=== PATIENT | female | born 1970 | race Caucasian/White ===

== ENCOUNTER 2018-05-26 00:24 | Outpatient (CLI) | payer BC, SELFPAY ==
--- NOTE | 2018-05-26 14:59 | DI.MAMMO_ITS ---
SYMPTOMS/DIAGNOSIS: BREAST CANCER SCREENING, Z12.31 MAMMOGRAMS: Mammograms were interpreted according to the usual protocol including computer analysis with CAD system, tomosynthesis and C view imaging. Comparison is with the prior examinations. No masses or microcalcifications are seen. There is nothing to suggest malignancy. IMPRESSION: Negative mammogram. Routine screening is recommended. Category 1 , breast density C. MQSA ASSESSMENT OF FINDINGS: Negative. Category 1. Patient will receive a letter notifying them of these results. Bi-RADS category C. The breasts are heterogeneously dense, which may obscure small masses.
== END 2018-05-26 00:44 ==
DX: Z12.31 Encounter for screening mammogram for malignant neoplasm of breast (principal)
CPT/HCPCS: 77063; 77067

== ENCOUNTER 2018-05-30 07:06 | Outpatient (CLI) | payer BC, SELFPAY ==
[2018-05-30 08:33] LABS: ALT 26 U/L (12-78); AST 24 U/L (15-37); Alkaline Phosphatase 63 U/L (46-116); Anion Gap 11.1 mmol/L (3-11); BUN 10 mg/dL (7-18); Bilirubin, Total 0.5 mg/dL (0.2-1.0); CO2 26.9 mmol/L (21.0-32.0); CREATININE 0.76 mg/dL (0.55-1.02); Calcium 9.2 mg/dL (8.5-10.1); Chloride 99 mmol/L (98-107); Glucose 72 mg/dL (70-100); Potassium 4.1 mmol/L (3.5-5.1); Sodium 137 mmol/L (136-145); Total Protein 7.5 g/dL (6.4-8.2)
== END 2018-05-30 07:26 ==
DX: M19.90 Unspecified osteoarthritis, unspecified site (principal); F41.9 Anxiety disorder, unspecified; M25.561 Pain in right knee; M25.562 Pain in left knee
CPT/HCPCS: 36415; 80053

== ENCOUNTER 2019-05-29 01:33 | Outpatient (CLI) | payer BC, SELFPAY ==
[2019-05-29 08:54] LABS: Anion Gap 9.9 mmol/L (3-11); BUN 16 mg/dL (7-18); CO2 25.1 mmol/L (21.0-32.0); CREATININE 0.76 mg/dL (0.55-1.02); Calcium 8.7 mg/dL (8.5-10.1); Calculated LDL 143 mg/dL; Chloride 105 mmol/L (98-107); Cholesterol 218 mg/dL (50-200); Glucose 90 mg/dL (70-100); HDL Cholesterol 64 mg/dL (40-60); Potassium 4.2 mmol/L (3.5-5.1); Sodium 140 mmol/L (136-145); Triglyceride 55 mg/dL (30-150)
== END 2019-05-29 01:53 ==
DX: Z00.00 Encounter for general adult medical examination without abnormal findings (principal); I10 Essential (primary) hypertension; E78.5 Hyperlipidemia, unspecified; F41.9 Anxiety disorder, unspecified
CPT/HCPCS: 36415; 80048; 80061

== ENCOUNTER 2019-06-22 01:15 | Outpatient (CLI) | payer BC, SELFPAY ==
--- NOTE | 2019-06-22 15:26 | DI.MAMMO_ITS ---
EXAM: MG MAMMO SCREENING CLINICAL HISTORY: screening, Z12.39 TECHNIQUE: Mammograms were interpreted according to the usual protocol including computer analysis w [employer] CAD system, tomosynthesis and C-view imaging. COMPARISON: 2017 and 2018 FINDINGS: The breasts are composed of heterogeneously dense tissue, breast density category C. There are no oneal spicious masses or suspicious microcalcifications. There has been no significant change when compared with prior images. IMPRESSION: Category 1, negative mammogram. Yearly screening mammography is recommended. BI-RADS Cat 1 - Negative Breast Density - Category C - Heterogeneously dense
== END 2019-06-22 01:35 ==
DX: Z12.31 Encounter for screening mammogram for malignant neoplasm of breast (principal)
CPT/HCPCS: 77063; 77067

== ENCOUNTER 2019-11-15 10:15 | Outpatient (CLI) | payer BC, SELFPAY ==
[2019-11-16 18:52] LABS: COVID-19 RT-PCR UVMMC Result Negative (Negative)
== END 2019-11-15 10:35 ==
PROVIDERS: Visit Provider Family Medicine
DX: R50.9 Fever, unspecified (principal)
CPT/HCPCS: U0003

== ENCOUNTER 2020-06-11 10:17 | Outpatient (CLI) | payer BC, SELFPAY ==
[2020-06-13 11:12] LABS: SARS-CoV-2 RNA Not Detected (NotDetected); SARS-CoV-2 RNA Source Nasal/Nares
== END 2020-06-11 10:37 ==
DX: R50.9 Fever, unspecified (principal)
CPT/HCPCS: U0003

== ENCOUNTER 2020-06-20 03:29 | Outpatient (CLI) | payer BC, SELFPAY ==
[2020-06-20 08:54] LABS: ALT 30 U/L (14-59); AST 21 U/L (15-37); Albumin 3.6 g/dL (3.4-5.0); Alkaline Phosphatase 74 U/L (46-116); Anion Gap 6.7 mmol/L (3-11); BUN 11 mg/dL (7-18); Bilirubin, Total 0.3 mg/dL (0.2-1.0); CO2 28.3 mmol/L (21.0-32.0); CREATININE 0.87 mg/dL (0.55-1.02); Calcium 8.9 mg/dL (8.5-10.1); Chloride 104 mmol/L (98-107); Glucose 84 mg/dL (74-106); Potassium 4.5 mmol/L (3.5-5.1); Sodium 139 mmol/L (136-145); Total Protein 7.1 g/dL (6.4-8.2)
== END 2020-06-20 03:49 ==
DX: Z00.00 Encounter for general adult medical examination without abnormal findings (principal)
CPT/HCPCS: 36415; 80053

== ENCOUNTER 2020-07-17 01:35 | Outpatient (CLI) | payer BC, SELFPAY ==
--- NOTE | 2020-07-17 15:12 | DI.MAMMO_ITS ---
EXAM: MAMMO SCREENING CLINICAL HISTORY: screening,Z12.39 TECHNIQUE: Mammograms were interpreted according to the usual protocol including computer analysis w [employer] CAD system, tomosynthesis and C-view imaging. COMPARISON: FINDINGS: The breasts are heterogeneously dense. No dominant mass or clumped microcalcification is identified in either breast. The current examination is compared with previous examinations including June 2019 and there is question of increased prominence of an area of asymmetric density projected in the retroareolar portion of the right breast on MLO view only. Additional mammographic views of the righ t breast are requested to include MLO spot compression view of the breast. Breast ultrasound is mary jo mmended as well. No other significant change seen. IMPRESSION: Additional mammographic views of the right breast requested as described above along with right breas t ultrasound. BI-RADS Category 0 - Assessment Incomplete: Need additional imaging evaluation Breast Density - Category C - Heterogeneously dense
== END 2020-07-17 01:55 ==
DX: Z12.31 Encounter for screening mammogram for malignant neoplasm of breast (principal); R92.8 Other abnormal and inconclusive findings on diagnostic imaging of breast
CPT/HCPCS: 77063; 77067

== ENCOUNTER 2020-07-30 01:23 | Outpatient (CLI) | payer BC, SELFPAY ==
--- NOTE | 2020-07-30 | DI.MAMMO_ITS ---
EXAM: MG MAMMO SCREEN CALL BACK UNI CLINICAL HISTORY: F/U MAMMO, INCREASED ASYMMETRIC DENSITY TECHNIQUE: Spot compression views and tomographic imaging were performed. COMPARISON: 2016 through July 07. FINDINGS: An MLO spot compression view with tomography was performed of the subareolar region. No suspicious m asses or suspicious microcalcifications are seen. No persistent abnormality is seen on the additional views performed. The findings are consistent wit h overlying fibroglandular tissue. There has been no significant change from prior exams. IMPRESSION: BI-RADS Category 1, Negative Yearly screening mammography is recommended. Breast Density - Category C - Heterogeneously dense
== END 2020-07-30 01:43 ==
DX: N64.89 Other specified disorders of breast (principal); R92.8 Other abnormal and inconclusive findings on diagnostic imaging of breast
CPT/HCPCS: 77063; 77067

== ENCOUNTER 2021-07-21 11:27 | Outpatient (REF) | payer BC, SELFPAY ==
--- NOTE | 2021-07-21 12:15 | PAPFT_PTH ---
PATIENT: Tracy Gama LOC: [facility] U#:[id number] AGE/SX: 50/F ROOM: RE07/21/[address]: Nayely Verma APRN : 1970 BED: DIS: 07/21/2021 SPEC #: [id number] RECD: 07/22/21 12:57 STATUS: CHIQUITA LANTIGUA #: [id number] MARY: 07/21/21 12:[address]: Nayely Verma DEPT: [facility] Cytology RECD BY: Angeles Maloney Tissues: 1 - CX/ENDOCX FOR PAP SMEARS Procedures: PAP THIN PREP/UVM Screening HPV DNA PROBE Comments: [id number]
== END 2021-07-21 11:28 | disposition home or self-care (01) ==
LOC: LBN 11:27
DX: Z12.4 Encounter for screening for malignant neoplasm of cervix (principal); Z11.51 Encounter for screening for human papillomavirus (HPV)
CPT/HCPCS: 88142; 87624

== ENCOUNTER 2021-08-20 03:29 | Outpatient (CLI) | payer BC, SELFPAY ==
[2021-08-20 09:59] LABS: ALT 90 U/L (14-59); AST 68 U/L (15-37); Albumin 3.7 g/dL (3.4-5.0); Alkaline Phosphatase 126 U/L (46-116); BUN 12 mg/dL (7-18); Bilirubin, Total 0.3 mg/dL (0.2-1.0); CREATININE 0.8 mg/dL (0.55-1.02); Calculated LDL 214 mg/dL (<100); Chloride 104 mmol/L (98-107); Cholesterol 295 mg/dL (<200); Glucose 89 mg/dL (74-106); HDL Cholesterol 67 mg/dL (40-60); Potassium 4.7 mmol/L (3.5-5.1); Sodium 138 mmol/L (136-145); Total Protein 7.3 g/dL (6.4-8.2); Triglyceride 72 mg/dL (<150)
== END 2021-08-20 03:30 | disposition home or self-care (01) ==
LOC: LBO 03:29
DX: E78.5 Hyperlipidemia, unspecified (principal); Z00.00 Encounter for general adult medical examination without abnormal findings
CPT/HCPCS: 36415; 80053; 80061

== ENCOUNTER 2021-09-18 03:44 | Outpatient (CLI) | payer BC, SELFPAY ==
[2021-09-18] MEDS: Omnipaque 350 MG/ML 100 ML BTL IJ (14:59)
--- NOTE | 2021-09-18 15:10 | DI.CT_ITS ---
Exam(s) CT ABDOMEN WO/W EXAM: CT ABDOMEN WO/W CLINICAL HISTORY: F/U US,LESION OF LIVER,ELEVATED LFT'S,K76.9,K79.89 TECHNIQUE: Imaging Protocol: Axial computed tomography images with coronal and sagittal reformatted images were created and reviewed CONTRAST MATERIAL: Intravenous: Omnipaque 350 Contrast volume:structured data in ml Contrast route:I V - Oral: no COMPARISON: US US ABDOMEN from 09/05/2021 FINDINGS: ABDOMEN: Lung Bases: Normal where visualized. Liver: Normal size and density. No measurable mass. Gallbladder and biliary tract: No radiodense calculus or dilation. Pancreas: Normal density, no abnormal calcifications or inflammatory process. Spleen: Normal. Kidneys: Normal size, contour and axis. No radiodense stones or obstructive uropathy. No masses seen. Adrenal glands: No masses seen. Abdominal Aorta: Abdominal portion non-dilated. Lymph nodes: Within normal limits. Bowel: No wall thickening or evidence of obstruction. Stomach unremarkable as visualized. Bones: Unremarkable for age. IMPRESSION: Unremarkable CT scan of the abdomen. No liver lesion is identified. Findings on ultrasound may be artifactual. RADIATION DOSE DELIVERED: Total DLP Total DLP DATA REPOSITORY: All CT scans at this facility are submitted to the National Radiology Data Registry (NRDR) Dose Index Registry (DIR) with the [employer] (ACR). RADIATION OPTIMIZATION: All CT scans at this facility use at least one of these dose optimization te chniques: automated exposure control; mA and/or kV adjustment per patient size (includes targeted exa ms where dose is matched to clinical indication); or iterative reconstruction.
== END 2021-09-18 04:04 ==
PROVIDERS: Visit Provider Nurse Practitioner
DX: K76.9 Liver disease, unspecified (principal); R79.89 Other specified abnormal findings of blood chemistry
CPT/HCPCS: 74170; J3490

== ENCOUNTER 2021-10-08 01:06 | Outpatient (CLI) | payer BC, SELFPAY ==
--- NOTE | 2021-10-08 15:08 | DI.MAMMO_ITS ---
Exam(s) MAMMO SCREENING EXAM: MAMMO SCREENING CLINICAL HISTORY: screening,Z12.39. TECHNIQUE: Bilateral full field digital CC and MLO mammographic images were obtained with 3D tomosyn thesis and utilizing computer aided detection (CAD). COMPARISON: Prior mammograms were reviewed, the most recent being June 2020. FINDINGS: The fibroglandular tissue pattern is again noted be moderately dense, this somewhat decreasing the se nsitivity of the mammogram for finding in underlying lesions There are no CAD designations. There are no new spiculated masses nor malignant appearing microcalcification groups. Small benign-appearing nodules in the upper-outer quadrant of the right breast are unchanged from bernardo or studies and consistent with benign intramammary lymph nodes. There is no significant architectural distortion nor skin thickening-retraction. IMPRESSION: Dense bilateral fibroglandular tissue. No obvious radiographic evidence of malignancy and no signifi cant change compared to prior mammograms listed above. BI-RADS Category 2 - Benign Findings Breast Density - Category C - Heterogeneously dense Breast density Category C or D implies that the patient has dense breast tissue. Dense breast tissue can make it harder to find cancer on a mammogram. Dense breast tissue is also associated with an incr eased risk of breast cancer. This information about the result of the mammogram report was provided to the patient to raise their awareness. Use this report when you speak with the patient about their risks for breast cancer, which includes their family history. At that time, you may recommend additional screening tests (Ultrasoun d or MRI) as these tests may add significant information. A negative radiographic report should not delay biopsy if a dominant or clinically suspicious mass is present. Up to ten percent of cancers are not identified on mammography. A negative report may reinforce clinical impression. Adenosis and dense breasts may obscure an underlying neoplasm. False positive reports average 6 to 10%. Patient will receive a letter notifying them of these results.
== END 2021-10-08 01:26 ==
DX: Z12.31 Encounter for screening mammogram for malignant neoplasm of breast (principal); R92.8 Other abnormal and inconclusive findings on diagnostic imaging of breast
CPT/HCPCS: 77063; 77067

== ENCOUNTER 2022-01-02 01:44 | Outpatient (CLI) | payer BC, SELFPAY ==
[2022-01-02 11:01] LABS: ALT 32 U/L (14-59); AST 23 U/L (15-37); Albumin 3.8 g/dL (3.4-5.0); Alkaline Phosphatase 89 U/L (46-116); Bilirubin, Direct 0.1 mg/dL (0.0-0.2); Bilirubin, Total 0.3 mg/dL (0.2-1.0); Total Protein 7.9 g/dL (6.4-8.2)
== END 2022-01-02 01:45 | disposition home or self-care (01) ==
LOC: LBO 01:44
DX: R79.89 Other specified abnormal findings of blood chemistry (principal)
CPT/HCPCS: 36415; 80076

== ENCOUNTER 2022-02-06 11:26 | Outpatient (CLI) | payer OTHER, SELFPAY ==
--- NOTE | 2022-02-06 10:30 | DI.RAD_ITS ---
Exam(s) XR KNEE LT 2V AP,LAT EXAM: XR KNEE LT 2V AP,LAT CLINICAL HISTORY: BILAT KNE OA. TECHNIQUE: 2D digital imaging was performed. Two views. COMPARISON: CR XR KNEE RT 2V AP,LAT from 02/06/2022 FINDINGS: BONES: No acute fracture is present. No bony destructive lesion is seen. JOINTS: Severe degenerative changes medial femoral tibial joint causing varus angulation. Periartic ular spurring and sclerosis. No joint effusion is seen. SOFT TISSUE: Normal. IMPRESSION: Severe degenerative changes medial femoral tibial joint. DATA REPOSITORY: RADIATION DOSE DELIVERED:
--- NOTE | 2022-02-06 10:30 | DI.RAD_ITS ---
Exam(s) XR STANDING ALIGNMENT EXAM: XR STANDING ALIGNMENT CLINICAL HISTORY: PRE OP. TECHNIQUE: 2D digital imaging was performed. Standing AP views were performed from the pelvis throu gh the ankles. COMPARISON: No exams were available for comparison FINDINGS: BONES: No acute fracture is present. No bony destructive lesion is seen. The right femoral head proje cts slightly superior to the left, by a few millimeters. JOINTS: Knees: Severe narrowing both medial femoral tibial joints with varus angulation. The ankle and hip joints are unremarkable. SOFT TISSUE: Normal. IMPRESSION: Severe degenerative changes of the medial femoral tibial joints of both knees. No significant leg le ngth discrepancy. DATA REPOSITORY: RADIATION DOSE DELIVERED:
--- NOTE | 2022-02-06 10:30 | DI.RAD_ITS ---
Exam(s) XR KNEE RT 2V AP,LAT EXAM: XR KNEE RT 2V AP,LAT CLINICAL HISTORY: PRE OP. TECHNIQUE: 2D digital imaging was performed. Two views. COMPARISON: CR RIGHT KNEE COMPLETE from 12/23/2010 FINDINGS: BONES: No acute fracture is present. No bony destructive lesion is seen. JOINTS: Severe degenerative changes with a iyzn-[id number] appearance involving the medial femoral tibia l joint. Some flattening of the medial femoral condyle. Periarticular spurring. Varus angulation a t the knee. Spurring is also noted at the tibial spines and lateral femoral tibial joint. There is mild spurring at the articular aspect of the patella. No joint effusion is seen. SOFT TISSUE: Normal. IMPRESSION: Severe degenerative changes of the medial femoral tibial joint. DATA REPOSITORY: RADIATION DOSE DELIVERED:
== END 2022-02-06 11:27 | disposition home or self-care (01) ==
LOC: DIORS 11:27
PROVIDERS: Visit Provider Student in an Organized Health Care Education/Training Program
DX: M17.0 Bilateral primary osteoarthritis of knee (principal); Z01.818 Encounter for other preprocedural examination
CPT/HCPCS: 73560; 77073

== ENCOUNTER 2022-03-16 04:26 | Outpatient (CLI) | payer OTHER, SELFPAY ==
[2022-03-16 11:15] LABS: HGB 11.6 g/dL (11.2-15.7); MCH 27.7 pg (27.0-33.0); MCHC 32.2 % (32.0-36.0); MCV 86 fL (80-95); MPV 9.5 fL (8.0-11.0); Platelet Count 347 10^3/uL (130-400); RBC 4.19 10^6/uL (3.93-5.22); RDW 15.9 % (11.7-14.6); RDW-SD 49.9 fL; WBC 7.81 10^3/uL (4.4-10.8)
[2022-03-16 12:17] LABS: Anion Gap 7.3 mmol/L (3-11); BUN 14 mg/dL (7-18); CO2 26.7 mmol/L (21.0-32.0); CREATININE 0.7 mg/dL (0.55-1.02); Calcium 8.9 mg/dL (8.5-10.1); Chloride 104 mmol/L (98-107); Glucose 94 mg/dL (74-106); Potassium 4.2 mmol/L (3.5-5.1); Sodium 138 mmol/L (136-145)
[2022-03-16 12:19] LABS: Source Nasal/Nares
[2022-03-16 15:15] LABS: COVID-19 PCR Negative (Negative)
== END 2022-03-16 04:27 | disposition home or self-care (01) ==
LOC: LBO 04:26
PROVIDERS: Visit Provider Student in an Organized Health Care Education/Training Program
DX: M17.0 Bilateral primary osteoarthritis of knee (principal); Z01.818 Encounter for other preprocedural examination; Z20.822 Contact with and (suspected) exposure to COVID-19
CPT/HCPCS: 36415; 80048; 85027; 87635

== ENCOUNTER 2022-03-17 07:11 | Inpatient (IN) | payer OTHER, SELFPAY ==
[2022-03-17] VITALS (57 sets, daily range): BP systolic 89–135; BP diastolic 58–87; PULSE 84–120; RESP 11–23; TEMP 36–38; O2SAT 92–100; BMI 35.3
[2022-03-17] MEDS: Lactated Ringers 1,000 ML 80 ML IV ×2 (06:27→16:35)
[2022-03-17] MEDS: Acetaminophen 500 MG TAB 1000 MG PO ×3 (06:34→18:57)
[2022-03-17] MEDS: Celecoxib 200 MG CAP 400 MG PO (06:34)
[2022-03-17] MEDS: Gabapentin 300 MG CAP PO (06:34)
--- NOTE | 2022-03-17 06:50 | W.ANESPRE ---
General Info Date of Service Date Performed: 03/17/22 Height: 5 ft 4 in Weight: 93.44 kg Body Mass Index (BMI): 35.3 Surgical Procedure: Operation Date: 03/17/22 07:50 Proposed Procedure Side Surgeon p Knee Total Arthroplasty Bilateral Cementless CR Bilateral Teofilo Brower MD Meds Allergies and Home Medications Allergies Allergy/AdvReac Type Severity Reaction Status Date / Time No Known Allergies Allergy Verified 03/17/22 06:04 Home Medication Medication Instructions Recorded amitriptyline 25 mg tablet 25 mg PO QPM #90 tab-caps 07/21/21 citalopram 40 mg tablet 40 mg PO DAILY #90 tabs 07/21/21 loratadine 10 mg tablet 10 mg PO DAILY #30 tab-caps 07/21/21 triamcinolone acetonide 0.1 % 1 applic topical BID #30 grams 07/21/21 topical cream duloxetine 30 mg capsule,delayed 30 mg PO DAILY #90 caps 11/03/21 release Current Visit Medications: Current Medications Generic Name Dose Route Start Last Admin Trade Name Andrés PRN Reason Stop Dose Admin Acetaminophen 1,000 mg 03/17/22 06:00 Acetaminophen 500 Mg Tab PO 03/17/22 16:00 PREOP GERSON Celecoxib 400 mg 03/17/22 06:00 Celecoxib 200 Mg Cap PO 03/17/22 16:00 PREOP GERSON Gabapentin 300 mg 03/17/22 06:00 Gabapentin 300 Mg Cap PO 03/17/22 16:00 PREOP GERSON Tranexamic Acid 1,000 mg/ 60 mls @ 360 mls/hr 03/17/22 06:00 Sodium Chloride IVPB 03/17/22 16:00 PREOP GERSON Tranexamic Acid 1,000 mg/ 60 mls @ 360 mls/hr 03/17/22 06:00 Sodium Chloride IVPB 03/17/22 16:00 DIRECTED GERSON Ringer's Solution 1,000 mls @ 80 mls/hr 03/17/22 06:00 IV 04/15/22 23:59 INFUSION GERSON Cefazolin Sodium/Dextrose 2 gm in 50 mls @ 100 mls/hr 03/17/22 06:00 Ancef Duplex IVPB 03/17/22 16:00 PREOP GERSON IV Miscellaneous Supplies 1 each 03/17/22 06:00 Iv Access IV 09/28/22 23:59 DIRECTED GERSON Sodium Chloride 0 ml 03/17/22 06:00 Normal Saline Flush 10 Ml Syr IV 04/15/22 23:59 PRN PRN Sodium Chloride 0 ml 03/17/22 06:00 Normal Saline 10 Ml Vial IJ 04/15/22 23:59 DIRECTED PRN Sterile Water 0 ml 03/17/22 06:00 Water,Injection,Sterile 10 Ml Vial IJ 04/15/22 23:59 DIRECTED PRN PFSH Active Problems Active Problems: Problem Status Onset Code BMI 34.0-34.9,adult Z68.34 Lesion of liver K76.9 Elevated LFTs R79.89 Hyperlipidemia 09/22/12 E78.5 Dermatitis L30.9 Bilateral primary osteoarthritis of knee M17.0 Anxiety F41.9 Medical History Medical History Allergic rhinitis Encounter for annual physical exam Headache Left shoulder pain Osteoarthritis (07/03/13) knees bilat Tobacco Smoking/Tobacco Use Status: Never Passive smoking exposure: Yes Alcohol Alcohol Intake: current Alcohol intake frequency: holidays/special occasions only Alcohol type: beer Substance Use Substance use: Never Substance use type: does not use Vital Signs and Lab Results Vital Signs Most Recent Vital Signs in EMR: Temp Pulse Resp BP Pulse Ox 37.0 C 93 H 16 133/87 98 03/17/22 06:06 03/17/22 06:06 03/17/22 06:06 03/17/22 06:06 03/17/22 06:06 Lab Results Blood Type / Crossmatch: No Data to Display Complete Blood Count: White Blood Count 7.81 10^3/uL (4.4-10.8) 03/16/22 11:05 Red Blood Count 4.19 10^6/uL (3.93-5.22) 03/16/22 11:05 Hemoglobin 11.6 g/dL (11.2-15.7) 03/16/22 11:05 Hematocrit 36.0 % (36.0-46.0) 03/16/22 11:05 Platelet Count 347 10^3/uL (130-400) 03/16/22 11:05 Complete Metabolic Panel: Sodium Level 138 mmol/L (136-145) 03/16/22 11:05 Potassium Level 4.2 mmol/L (3.5-5.1) 03/16/22 11:05 Chloride Level 104 mmol/L (98-107) 03/16/22 11:05 Carbon Dioxide Level 26.7 mmol/L (21.0-32.0) 03/16/22 11:05 Blood Urea Nitrogen 14 mg/dL (7-18) 03/16/22 11:05 Creatinine 0.7 mg/dL (0.55-1.02) 03/16/22 11:05 Estimated GFR/1.73 m2 >= 60.00 (mL/min/1.73m2) 03/16/22 11:05 Calcium Level 8.9 mg/dL (8.5-10.1) 03/16/22 11:05 Glucose Level 94 mg/dL (74-106) 03/16/22 11:05 Liver Function Panel: No Data to Display Coagulation Panel: No Data to Display Cardiac Panel: No Data to Display Arterial Blood Gas: No Data to Display Venous Blood Gas: No Data to Display Pancreas Panel: No Data to Display Thyroid Panel: No Data to Display Infectious Disease: Coronavirus (COVID-19)(PCR) Negative (Negative) 03/16/22 11:16 Coronavirus 2019 Source Nasal/Nares 03/16/22 11:16 Blood Cultures: No Data to Display Toxicology Panel: No Data to Display Panel: No Data to Display Anesthesia Assessment and Plan Anesthesia History Personal History: No History of Anesthesia Complications Family History: No Family History of Anesthesia Complications Exercise Tolerance Exercise Tolerance: Metabolic Equivalents>4 Cardiac & Pulmonary Exam Cardiac Exam: Normal S1/S2 Heart Sounds Pulmonary Exam: Clear Bilateral Breath Sounds Implantable Cardiac Device Does patient have a Pacemaker or an ICD?: No Airway Exam Known Difficult Airway: No Mallampati Class: 2 Mouth Opening: Normal (> 3cm) Thyromental Distance: Greater than 3 cm Neck Range of Motion: Full ROM Neck Circumference: Normal Teeth Condition: Normal Dentition ASA Classification ASA Score: ASA 2 Emergency Case?: No NPO Status NPO Status: NPO Clears >2 hours, Solids >8 hours Status Status: Not Relevant due to Medical History Anesthesia Plan Resuscitation Status: Full Code Anesthesia Technique: Spinal Anesthesia Airway Planned: Natural Airway Pain Management: Surgeon and patient request nerve block Monitors Used: Standard Monitors Preoperative Comments:: 51 yo female for bilateral TKA. Sig PMHx: anxiety, never smoker, occ EtOH,
--- NOTE | 2022-03-17 07:14 | W.PM.DS.N ---
Discharge Plan Disposition Patient Disposition: HOME Condition: Good Discharge Details Reason For Visit: Bilateral knee DJD Attending Provider: Teofilo Brower Primary Care Provider: Nayely Vemra Home Meds and New Rx's Prescriptions: New celecoxib [Celebrex] 200 mg capsule 200 mg PO BID Qty: 30 0RF aspirin 81 mg tablet,delayed release (DR/EC) 81 mg PO BID 30 Days Qty: 60 0RF acetaminophen 500 mg tablet 1,000 mg PO Q8H PRN Qty: 90 0RF Rx Instructions: Take two tablets up to every 8 hours as needed for pain docusate sodium [Colace] 100 mg capsule 100 mg PO BID Qty: 30 0RF pantoprazole 40 mg tablet,delayed release (DR/EC) 40 mg PO DAILY 14 Days Qty: 14 0RF gabapentin 300 mg capsule 300 mg PO QHS Qty: 14 0RF Rx Instructions: Take one tablet at bedtime oxycodone 5 mg tablet 5 mg PO Q4H PRN (Reason: severe post-operative pain) Qty: 18 0RF Rx Instructions: Take one tablet up to every 4 hours as needed for severe pain Continued amitriptyline 25 mg tablet 25 mg PO QPM Qty: 90 3RF citalopram 40 mg tablet 40 mg PO DAILY Qty: 90 3RF loratadine 10 mg tablet 10 mg PO DAILY Qty: 30 3RF triamcinolone acetonide 0.1 % cream 1 applic topical BID Qty: 30 2RF duloxetine 30 mg capsule,delayed release(DR/EC) 30 mg PO DAILY Qty: 90 3RF Discontinued naproxen 500 mg tablet 500 mg PO BID PRN LARRY Qty: 180 2RF Discharge Instructions Additional Instructions: Total Knee Discharge Instructions Activity: The most important activity is to walk. You should try to take short walks a few times a day. It is important that when resting you work on keeping the knee straight. Avoid putting a pillow behind the knee as this will encourage flexion. Work on range of motion exercises as provided by Physical Therapy. - Start outpatient physical therapy within 2 weeks. - You should wear the GARY hose on both legs for 2 weeks. You may remove these at night. You may also use any compression sock in place of the GARY hose. - Utilize [employer] to review exercises, see videos on exercises and obtain basic information pertaining to your surgery and your recovery. Dressing: Remove the Bladimir wrap by 2 days after your surgery and put on the GARY stocking given to you from the hospital. Keep the surgical dressing (underneath the BLADIMIR wrap) in place for at least one week. After the first week it may be removed and replaced with light gauze and tape or nothing. The wound and dressing may get wet after 3 days but avoid soaking the dressing or otherwise it will need to be changed. Many people prefer covering the dressing with cling wrap (saran wrap) to minimize it from getting soaked. If it gets wet, just pat dry. If it starts to peel off then it will need to be changed. Medications: - You should take Tylenol and anti-inflammatory Celebrex as your primary pain control medications. If the Celebrex is too expensive or not covered, please call the office for another alternative (Advil/Ibuprofen or Naproxen/Aleve) - You have been prescribed a stronger pain medication Oxycodone for breakthrough pain, take as needed as prescribed. - You have also been prescribed a stomach acid reduction agent Pantoprozole to help reduce stomach acid and reflux. - You have been prescribed Gabapentin to take at night for restlessness and nerve pain. - You will be taking Aspirin 81mg twice a day for DVT prevention unless instructed otherwise. - If you have constipation you should take Colace (which has been prescribed) or Miralax (which is available [id number]). It takes most people 3-4 days to have a bowel movement. Follow-up: 2 weeks If you have any acute concerns or questions, please do not hesitate to contact the office at [phone]. You may contact Dr. Brower with any questions after hours through the hospital at [phone] or on his cell phone at [phone]. Referrals: Teofilo Brower MD [ [facility] STAFF PHYSICIAN] - Equipment/Supplies: Walker Activity:: Elevate Remove Dressings/Wound Care:: Do Not Remove Shower/Bathe:: Cover Diet:: As Tolerated DS: Data Vitals/I&O Vitals and I&O: Vital Signs Temperature 98.8 F 03/17/22 07:12 Temperature Source Temporal Artery Scan 03/17/22 07:12 Pulse 93 H 03/17/22 07:12 Pulse Rhythm Regular 03/17/22 06:06 Respiratory Rate 20 03/17/22 07:12 Respiratory Depth Normal 03/17/22 06:06 Blood Pressure 133/87 03/17/22 06:06 Pulse Oximetry 98 03/17/22 07:12 Oxygen Delivery Method Room Air 03/17/22 07:12 Oxygen Flow Rate 0 03/17/22 07:12 Pain Level 0 03/17/22 07:12 Intake & Output 03/16/22 03/16/22 03/17/22 11:59 23:59 11:59 Weight 205 lb 15.999 oz 205 lb 15.999 oz 205 lb 0.478 oz PFSH All Active Problems BMI 34.0-34.9,adult (Chronic) Elevated LFTs (Acute) 08/2021 - AST=68, ALT=90 (asymmptomatic) 12/2021 - AST 23, ALT 32 Hyperlipidemia (Chronic 09/22/12) ACC/AHA calc. risk = 1.8% despite elevations (Statin not indicated) Dermatitis (Chronic) hands Bilateral primary osteoarthritis of knee (Chronic) Most recent injection: 06/19/2019 bilaterally Anxiety (Chronic) depression Medical History Allergic rhinitis Encounter for annual physical exam Headache Left shoulder pain Osteoarthritis (07/03/13) knees bilat Family History Mother Hyperlipidemia Father , age 78 Essential hypertension Asthma Alcohol abuse Sister Hyperlipidemia Sister No problems noted. Sister No problems noted. Brother Hyperlipidemia Paternal Grandmother Pancreatic cancer Maternal Grandfather Heart disease Paternal Grandfather Heart disease Son No problems noted. Daughter No problems noted. Daughter No problems noted. Social History Smoking/Tobacco Use Status: Never Smoking risk assessment performed?: Yes Alcohol Intake: current Alcohol Intake frequency: holidays/special occasions only Alcohol type: beer Drug use: Never Substance use type: does not use Caregiver/Support person: No Household members: spouse Communication Needs: None current occupation: CAREGIVER Pets and animals: No Sexually active: Yes Do you think of yourself as: straight/heterosexual Current gender identity: female What is your relationship status?: How often do you talk on the phone with friends or family?: three or more times per week How often do you get together with friends or relatives?: once per week Do you belong to any clubs or organized social groups?: no Panel score (0-1 are the most socially isolated patients): 2 Beatriz/Samaritan: No preference Special beatriz needs: No Seatbelt use: always Drive intox or ride w/intox motor vehicle escort driver: No Do you feel safe at home: Yes Do you feel safe in your relationship?: Yes Victim of physical abuse: No Victim of emotional abuse: No Victim of sexual abuse: No Would you like helpful sources: No
[2022-03-17 08:49] LABS: BE (Venous) -7 mmol/L (-2-3); HCO3 (Venous) 20 mmol/L (23-28); O2 Sat (Venous) 97 %; TCO2 (Venous) 19 mmol/L (24-29); pCO2 (Venous) 47 mmHg (41-51); pH (Venous) 7.24 (7.31-7.41); pO2 (Venous) 143 mmHg
[2022-03-17 08:50] LABS: Abs Immature Grans 0.22 10^3/uL (0.0-0.06); Absolute Basophil Count 0.08 10^3/uL (0.0-0.2); Absolute Eosinophil Count 0.31 10^3/uL (0.0-0.7); Absolute Lymphocyte Count 4.68 10^3/uL (1.2-3.4); Absolute Monocyte Count 0.58 10^3/uL (0.1-0.8); Absolute Neutrophil Count 13.56 10^3/uL (1.2-6.7); Basophils % 0.4; Eosinophils % 1.6; HCT 39.1 % (36.0-46.0); HGB 12.4 g/dL (11.2-15.7); Immature Grans % 1.1; Lymphocytes % 24.1; MCH 27.4 pg (27.0-33.0); MCHC 31.7 % (32.0-36.0); MCV 86 fL (80-95); MPV 9.9 fL (8.0-11.0); Neutrophils % 69.8; Platelet Count 417 10^3/uL (130-400); RBC 4.53 10^6/uL (3.93-5.22); RDW 15.5 % (11.7-14.6); RDW-SD 49.4 fL; WBC 19.43 10^3/uL (4.4-10.8)
[2022-03-17 08:54] LABS: Lactate 2.5 mmol/L (0.6-1.4)
--- NOTE | 2022-03-17 08:59 | PUCC_ITS ---
General Date of Service Date of service: 03/17/22 Time of Service: 08:59 Reason for Admission to ICU: Distributive Shock Assessment and Plan Assessment and plan (1) Shock due to anesthesia: Status: Acute (2) Hypokalemia: Status: Acute (3) Respiratory failure with hypoxia: Status: Acute (4) Lactic acidosis: Status: Acute (5) Leukocytosis: Status: Acute Assessment and plan: This is an otherwise healthy 51 yo female who appears to have had a adverse reaction to anesthesia resulting in circulatory shock. She has central access a nd an arterial line. She recovered quickly with supportive care including intubation and pressor support. I do not beleive this is an anaphylactic reaction as she does not have any edema or rashes visible. Her rapid recovery and history of events suggests an acute drop in preload likely due to anesthetic medications results in massive hypoperfusion resulting in shock. This was promptly and effectively managed. Her labs do show hypokalemia as well. Recommendations Pulmonary: Acute respiratory failure with hypoxia - s/p intubation and extubated - supplemental O2 as needed for sats >90% - recommend IS Cardiac: Circulatory shock due to anesthesia - epinephrine has been weaned off - continue to wean off norepinephrine for MAP >65 - s/p 1200cc LR - no further IVF required - recommend EKG and formal echo Renal: Hypokalemia - replete to 4.0 Will monitor I/O's I&O: Intake & Output 03/14/22 03/15/22 03/16/22 03/17/22 23:59 23:59 23:59 23:59 Weight 93.44 kg 93 kg Daily Fluid Goal:: even to slightly positive GI Nutrition: OK for PO diet if passes bedside swallow test Date of Last Bowel Movement: 03/16/22 Infectious Disease: No acute concerns Hematologic: Leukocytosis - likely reactive Neurologic: No acute concerns - normal mental status upon extubation per anesthesia Endocrine: No acute concern Lines: Right IJ Left brachial arterial line Prophylaxis: recommend chemical DVT ppx No indication for GI ppx Code Status: Resuscitation Status Full Code Subjective Critical and life-threatening events over the past 24 hours: This is a 52 yo otherwise healthy female who presented to the OR for bilateral knee replacements for osteoarthritis. Her only home medications include depression meds, pain meds for her knee and a PPI in addition to a low dose aspirin. She received a spinal from anesthesia and once the meds began to take effect she began to develop dyspnea, bradycardia and hypotension prior to the initiation of the procedure. Anesthesia promptly intubated her and called me for assistance. On my arrival she was significant doses of epinephrine and norepinephrine and was intubated. Her vitals signs at this point her stable. A central line in the right IJ was placed by anesthesia. A left arterial line was attempted but difficult so I attempted a right femoral and a right axillary, both of which were cannulated but had difficulty threading so was aborted. Eventually anesthesia was able to place a left brachial art line. The epinephrine and norepinephrine were able to be titrated down rapidly during my time working on her in the OR. Labs drawn show some evidence of tissue hypoperfusion with a lactate of 2.5. She also does have hypokalemia identified in her labs. After follow up calling to the ICU I was informed that she was extubated without issue in the ICU. Exam Narrative Exam Narrative: Gen: Normal color, warm HENT: PERRL Chest: No respiratory distress, normal inspiratory effort, intubated Heart: regular rate and rhythym Abdomen: Non-distended, soft, non tender Extremities: No clubbing, edema, cyanosis, rashes Neuro: intubated and sedated Psych: intubated and sedated Most Recent VS/Results Last Vital Signs Temp 37.1 C 03/17/22 07:28 Pulse 89 03/17/22 07:28 Resp 21 03/17/22 07:28 BP 135/85 03/17/22 07:28 Pulse Ox 100 03/17/22 07:28 Laboratory Results - last 24 hr 03/17/22 03/17/22 03/17/22 08:30 08:30 08:30 WBC 19.43 H RBC 4.53 Hgb 12.4 Hct 39.1 MCV 86 MCH 27.4 MCHC 31.7 L RDW 15.5 H Plt Count 417 H MPV 9.9 Immature Gran % 1.1 Neutrophils % 69.8 Lymphocytes % 24.1 Monocytes % 3.0 Eosinophils % 1.6 Basophils % 0.4 Nucleated RBC % 0.0 Absolute Neutrophils 13.56 H Absolute Lymphocytes 4.68 H Absolute Monocytes 0.58 Absolute Eosinophils 0.31 Absolute Basophils 0.08 VBG pH 7.24 L VBG pCO2 47 VBG pO2 143 VBG HCO3 20 L VBG Total CO2 19 L VBG O2 Saturation 97 VBG Base Excess -7 L VBG Lactate 2.5 H* Review of Systems All systems reviewed & are unremarkable except as noted in HPI and below Time spent with patient Time spent in Critical Care: 60 Time spent in Critical care included: Chart review, Documenting critically ill care, Time at immediate bedside and Discussing critically ill care with other medical staff Multi-Disciplinary Checklist Lines/Tubes CENTRAL LINE: yes, Central Line Day#: 0 ARTERIAL LINE: yes, Arterial Line Day#: 0 DANG: no ENDOTRACHEAL TUBE: no ICU Maintenance GLUCOSE 140-180mg/dL: no, Reason/Intervention: elevated, will monitor NUTRITION AT GOAL: no, Reason/Intervention: just arrived to ICU - recommend PO diet PRESSURE ULCER: no RESTRAINTS: no ANTIBIOTICS(if yes, consider Stewardship): No Social Issues FAMILY UPDATED: no, Reason/Intervention: Patient able to do this independently PT/OT: no, Reason/Intervention: patient just arrived to ICU GOALS/DISPOSITION/LINUX PROGRAMMER: no, Reason/Intervention: patient just arrived to ICU CODE STATUS: Full Prophylaxis DVT PROPHYLAXIS: no Reason/Intervention: orders pending, but recommended GI PROPHYLAXIS: no
--- NOTE | 2022-03-17 09:02 | ROE_ITS ---
Date of service: 03/17/22 Time of Service: 08:30 Operative Note Operative Note DATE OF PROCEDURE: 03/17/22 PRE-OP DIAGNOSIS: Bilateral Knee Arthritis POST-OP DIAGNOSIS: same PROCEDURE: ABORTED SURGEON: Teofilo Brower WAREHOUSE FORKLIFT OPERATOR: Candelaria Mckay Refer to Anesthesia Record COMPLICATIONS: Other (Case aborted. Please see procedure description. ) Patient was transported to: ICU Patient's condition: critical Procedure Description: Tracy was greeted in the preoperative holding area. Her identity was confirmed and the consent was reviewed the patient and signed. Both knees were identified as the correct site for surgery. Bilateral abductor canal blocks were then administered anesthesia without issue and she was taken back to the operating room. A spinal anesthetic was administered. Both legs were prepped with ChloraPrep and draped in a standard fashion. Appropriate antibiotics were administered. Prior to proceeding any further with set up and surgery there was a fairly precipitous drop in blood pressure as well as oxygenation. Initial efforts to resuscitate were not adequately improving blood pressure nor oxygenation and therefore anesthesia proceeded with intubation and establishment of better access. Multiple providers were involved to establish central access as well as arterial access. Multiple vasopressors were utilized to help with blood pressure. After significant medical treatment the blood pressure improved and after intubation the oxygenation started to improve as well. At this point, it was deemed safest to abort the planned surgery and admit to the hospitalist service at the ICU for further evaluation and work-up. Bedside echo did not reveal any massive pulmonary embolus and did show adequate cardiac function and contraction. Prior to leaving the operating room the patient was intubated with central line access as well as multiple peripheral access and an arterial line. She was stable. A host of labs were ordered as well as a twelve-lead EKG, chest x-ray, and echocardiogram. Care will be transitioned to Dr. Gay of the hospital service with consultation from anesthesia and pulmonology.
[2022-03-17 09:12] LABS: ALT 51 U/L (14-59); AST 28 U/L (15-37); Albumin 2.9 g/dL (3.4-5.0); Alkaline Phosphatase 112 U/L (46-116); BUN 13 mg/dL (7-18); Bilirubin, Total 0.2 mg/dL (0.2-1.0); CO2 22.7 mmol/L (21.0-32.0); CREATININE 0.9 mg/dL (0.55-1.02); Chloride 105 mmol/L (98-107); Glucose 220 mg/dL (74-106); Total Protein 6.4 g/dL (6.4-8.2)
[2022-03-17 09:16] LABS: Troponin I < 50 ng/L (<or=60)
[2022-03-17 09:18] LABS: Anion Gap 11.3 mmol/L (3-11); Sodium 139 mmol/L (136-145)
[2022-03-17 09:24] LABS: Potassium 2.5 mmol/L (3.5-5.1)
--- NOTE | 2022-03-17 09:39 | DI.RAD_ITS ---
Exam(s) XR PORTABLE CHEST AP EXAM: XR PORTABLE CHEST AP CLINICAL HISTORY: s/p line placement with hypoxia TECHNIQUE: COMPARISON: No exams were available for comparison FINDINGS: Portable AP chest at 0935 hours. There is an apparent IJ catheter placed the tip of which overlies s uperior vena cava. Lungs appear grossly clear and well expanded. IMPRESSION: RADIATION DOSE DELIVERED: Total DLP
--- NOTE | 2022-03-17 09:48 | NT_ITS ---
Date of service: 03/17/22 Time of Service: 09:48 PT Notes Visit Reasons: Bilateral knee DJD Orthopedic referral cancelled by Dr. Brower as B TKA procedure was aborted due to hypotensive and respiratory emergency that occurred perioperatively. Thank you for the opportunity to participate in the care of this patient. Kamla Moses PT, DPT, CLT [facility] [place], [place]
--- NOTE | 2022-03-17 10:15 | RT.EKG_ITS ---
APPROVED REPORT Exam: Resting ECG Reason for Exam: hypotension Patient Location: I HR:87 bpm ECG Measurements Heart Rate 87 AXIS VT 151 P 43 QRSd 88 QRS 51 QT 370 T 57 QTc 445 Conclusion Sinus rhythm...normal P axis, V-rate 50- 99 Normal Electrocardiogram
--- NOTE | 2022-03-17 10:23 | W.ANESNERVE ---
Nerve Block Single Injection Procedure Date and Time Date Performed: 03/17/22 Procedure Start: 07:05 Location Where Procedure Performed Procedure Location: Day Surgery Unit Reason Performed: Postoperative Analgesia Requesting Provider: Teofilo Brower Timeout Performed Timeout Performed: Yes Monitoring Used ECG, Blood Pressure and SpO2 Sterility Sterility: Hand Hygiene, Surgical Cap, Surgical Mask, Sterile Gloves and Chlorhexidine Sedation Given During Procedure Sedation Given (Indicate Dose Given): Versed IV Dose:: 2 mg Patient Mental Status Patient Mental Status: Awake Nerve Block 1st Nerve Block: Laterality: Bilateral Block Type: Adductor Canal Needle / Catheter Used: 100mm SonoPlex II Local Anesthetic Bolus (Indicate Dose Given): Lidocaine used for local infiltration of skin, Injected in 3-5ml increments after negative blood aspiration, Half of Total block solution given into each side and Bupivacaine 0.375% Dose:: 20 mL Additives (Indicate Dose Given): None Ultrasound: Sterile probe cover and gel used Ultrasound Image Saved?: Yes Nerve Stimulator: Not Used Paresthesia: None Procedure Tolerated: No Complications Procedure Outcome: Successful Performed By: Jayy Mckenna
--- NOTE | 2022-03-17 10:31 | MCONE_ITS ---
Date of service: 03/17/22 Time of Service: 10:31 Assessment and Plan Assessment and plan (1) Respiratory failure with hypoxia: Status: Acute Assessment and plan: now extubated. monitor respiratory status; hold any feeding until later this afternoon when she is fully awake and we are ensured that she is handling secreations well (2) Shock due to anesthesia: Status: Acute Assessment and plan: now extubated and off epinephrine; on low dose Norepi. Will have nursing wean to map over 65 mm. Should be able to dc norepinephrine by this afternoon. (3) Hypokalemia: Status: Acute Assessment and plan: correct w/ IV potassium; check magnesium; one would have expected hyperkalemia given her metabolic acidosis. will give couple boluses 20 meq each over an hour each and repeat her electrolytes this afternoon (4) Lactic acidosis: Status: Acute Assessment and plan: secondary to vasoplegic shock; continue support of hemodynamics; correct hypokalemia, gently hydration; repeat lactic acid and electrolytes and serial troponin; check formal echocardiogram to evaluate RV and LV fxn (5) Leukocytosis: Status: Acute Assessment and plan: secondary to vasoplegic shock; however, nursing indicated that she was coughing a lot of thick yellow mucous at the time of extubation; CXR was clear; will give her IS and Acapella to encourage pulmonary clearance; monitor for any fevers; repeat her CBC later today along w/ her electrolytes (6) Bilateral primary osteoarthritis of knee: Status: Chronic History of Present Illness History of Present Illness Chief Complaint: hypotension Narrative: 51-year-old female with osteoarthritis but otherwise healthy with no known cardiac or pulmonary disease was brought to the OR today for an elective bilateral knee replacement. Patient was given spinal anesthetic and shortly thereafter developed refractory hypotension and hypoxemia and was emergently intubated and put on vasopressors including epinephrine and norepinephrine. Dr. Rosa, iuss analyst/CCM was emergently called to the OR and participated with resuscitation along with the anesthesia team and Dr. Brower. I was consulted after resuscitation had been successful. Patient had a right internal jugular vein central venous catheter placed as well as being emergently intubated and a left brachial arterial line was placed by anesthesia. Patient is now in the intensive care unit and has since been extubated placed on oxygen facemask. She is awake and conversant although she still feels cold and still requiring low- dose norepinephrine drip at 0.1 mcg/kg/min. Her map is above 65 mm. Epinep hrine was weaned off. ECG has been taken and shows no evidence of acute ischemic cardiac event. Initial labs showed a white count of 19,400 but no anemia. Hemoglobin 12.4 g. CHEM profile demonstrated hypokalemia two-point folic with anion gap 11.3 with normal transaminases normal troponin I less than 50 calcium was slightly low at 8.0 but corrects to normal with a low albumin of 2.9. Glucose elevated 220. Initial ABG demonstrated metabolic acidosis with pH 7.24 bicarbonate of 20 and a blood lactate of 2.5. Echocardiogram is pending at this time and EKG shows no ischemic changes. [id number] ultrasound of her heart was done in the OR and showed normal LV and RV function and normal size RV. Review of Systems Constitutional Constitutional: Reports fatigue and Reports malaise Cardiovascular Cardiovascular: Reports system reviewed and no additional complaints, except as documented Respiratory Respiratory: Reports system reviewed and no additional complaints, except as documented Gastrointestinal Gastrointestinal: Denies diarrhea, Reports nausea and Denies vomiting Genitourinary Genitourinary: Reports system reviewed and no additional complaints, except as documented Neurologic Neurologic: Reports system reviewed and no additional complaints, except as documented Endocrine Endocrine: Reports system reviewed and no additional complaints, except as documented and Reports fatigue Hematologic/Lymphatic Hematologic/Lymphatic: Reports system reviewed and no additional complaints, except as documented Allergic/Immunologic Allergic/Immunologic: Reports system reviewed and no additional complaints, except as documented PFSH All Active Problems (Updated 03/17/22 @ 09:38 by Amy Rosa MD) Respiratory failure with hypoxia (Acute) Leukocytosis (Acute) Lactic acidosis (Acute) Hypokalemia (Acute) Shock due to anesthesia (Acute) BMI 34.0-34.9,adult (Chronic) Elevated LFTs (Acute) 08/2021 - AST=68, ALT=90 (asymmptomatic) 12/2021 - AST 23, ALT 32 Hyperlipidemia (Chronic 09/22/12) ACC/AHA calc. risk = 1.8% despite elevations (Statin not indicated) Dermatitis (Chronic) hands Bilateral primary osteoarthritis of knee (Chronic) Most recent injection: 06/19/2019 bilaterally Anxiety (Chronic) depression Medical History Allergic rhinitis Encounter for annual physical exam Headache Left shoulder pain Osteoarthritis (07/03/13) knees bilat Family History Mother Hyperlipidemia Father , age 78 Essential hypertension Asthma Alcohol abuse Sister Hyperlipidemia Sister No problems noted. Sister No problems noted. Brother Hyperlipidemia Paternal Grandmother Pancreatic cancer Maternal Grandfather Heart disease Paternal Grandfather Heart disease Son No problems noted. Daughter No problems noted. Daughter No problems noted. Social History Smoking/Tobacco Use Status: Never Smoking risk assessment performed?: Yes Alcohol Intake: current Alcohol Intake frequency: holidays/special occasions only Alcohol type: beer Drug use: Never Substance use type: does not use Caregiver/Support person: No Household members: spouse Communication Needs: None current occupation: CAREGIVER Pets and animals: No Sexually active: Yes Do you think of yourself as: straight/heterosexual Current gender identity: female What is your relationship status?: How often do you talk on the phone with friends or family?: three or more times per week How often do you get together with friends or relatives?: once per week Do you belong to any clubs or organized social groups?: no Panel score (0-1 are the most socially isolated patients): 2 Beatriz/Adventist: No preference Special beatriz needs: No Seatbelt use: always Drive intox or ride w/intox pharmacy delivery driver: No Do you feel safe at home: Yes Do you feel safe in your relationship?: Yes Victim of physical abuse: No Victim of emotional abuse: No Victim of sexual abuse: No Would you like helpful sources: No Exam Narrative Exam Narrative: sleepy but oriented HEENT: Atraumatic normocephalic, pupils equally round reactive to light and accommodation, extraocular motion intact, TMs intact, nares moist and patent without exudate or bleeding, oropharynx noninjected without exudate, teeth in good repair Neck: Supple, nontender, without thyromegaly or lymphadenopathy or JVD. Normal carotid pulses Lungs: Clear to auscultation anteriorly but decreased breath sounds at the bases posteriorly Heart: Regular rate and rhythm without murmur rub or gallop. Normal apical impulse Abdomen: Nondistended, normal bowel sounds, nontender to palpation or percussion, no organomegaly, no bruits, no palpable masses Genitalia and rectal exam: Deferred Breasts: Deferred Extremities: no calf or thigh edema; feet are cool w/ palpable pedal pulses, no cyanosis Neurologic: grossly normal CN and no focal motor or sensory deficits. Results Last Vital Signs Temp 36.0 C L 03/17/22 09:10 Pulse 92 H 03/17/22 10:05 Resp 18 03/17/22 10:06 BP 107/72 03/17/22 10:05 Pulse Ox 97 03/17/22 10:06 Labs Result diagrams: 03/17/22 13:57 03/17/22 13:57 Labs: Laboratory Results - last 24 hr 03/17/22 03/17/22 03/17/22 08:30 08:30 08:30 WBC 19.43 H RBC 4.53 Hgb 12.4 Hct 39.1 MCV 86 MCH 27.4 MCHC 31.7 L RDW 15.5 H Plt Count 417 H MPV 9.9 Immature Gran % 1.1 Neutrophils % 69.8 Lymphocytes % 24.1 Monocytes % 3.0 Eosinophils % 1.6 Basophils % 0.4 Nucleated RBC % 0.0 Absolute Neutrophils 13.56 H Absolute Lymphocytes 4.68 H Absolute Monocytes 0.58 Absolute Eosinophils 0.31 Absolute Basophils 0.08 VBG pH VBG pCO2 VBG pO2 VBG HCO3 VBG Total CO2 VBG O2 Saturation VBG Base Excess VBG Lactate Sodium 139 Potassium 2.5 L* D Chloride 105 Carbon Dioxide 22.7 Anion Gap 11.3 H BUN 13 Creatinine 0.9 Est GFR (CKD-EPI 2020) 77.40 Glucose 220 H Calcium 8.0 L Total Bilirubin 0.2 AST 28 ALT 51 Alkaline Phosphatase 112 Troponin I < 50 Total Protein 6.4 Albumin 2.9 L 03/17/22 03/17/22 08:30 08:30 WBC RBC Hgb Hct MCV MCH MCHC RDW Plt Count MPV Immature Gran % Neutrophils % Lymphocytes % Monocytes % Eosinophils % Basophils % Nucleated RBC % Absolute Neutrophils Absolute Lymphocytes Absolute Monocytes Absolute Eosinophils Absolute Basophils VBG pH 7.24 L VBG pCO2 47 VBG pO2 143 VBG HCO3 20 L VBG Total CO2 19 L VBG O2 Saturation 97 VBG Base Excess -7 L VBG Lactate 2.5 H* Sodium Potassium Chloride Carbon Dioxide Anion Gap BUN Creatinine Est GFR (CKD-EPI 2020) Glucose Calcium Total Bilirubin AST ALT Alkaline Phosphatase Troponin I Total Protein Albumin
[2022-03-17 10:48] LABS: Magnesium 1.7 mg/dL (1.8-2.4)
[2022-03-17] MEDS: POTASSIUM CHLORIDE 20 MEQ/100 ML BAG 100 MEQ IVPB ×2 (10:50→12:42)
[2022-03-17] MEDS: Ondansetron 4 MG/2 ML VIAL IVP (10:50)
--- NOTE | 2022-03-17 11:17 | DI.US_ITS ---
APPROVED REPORT EXAM: Comprehensive 2D, Doppler, and color-flow Echocardiogram Patient Location: In-Patient Room/Bed: BAS068 Gyroscope Repairer: Hollie Oconnor RDCS (AE) Indications: Hypotension and Hypoxia anesthetic induced Other Information Study Quality: Fair. Technically limited study due to body habitus, inability to position patient, un cooperative patient. Conclusion Technically limited but adequate study Normal left ventricular wall thickness and chamber size. Estimated ejection fraction is 55 to 60%. No wall motion abnormalities were appreciated The right ventricle was not well visualized Both atria are normal in size There is no structural or hemodynamically significant valvular disease Wall motion Left Ventricle The left ventricle is normal size. There is normal left ventricular wall thickness. LVEF is 54%. Right Ventricle Right ventricle is not well visualized. Right ventricular systolic function could not be assessed. Atria The left atrium size is normal. The right atrium size is normal. The interatrial septum is intact wit h no evidence for an atrial septal defect. Aortic Valve The aortic valve is normal in structure. Aortic valve is trileaflet. There is no aortic valvular sten osis. No aortic regurgitation is present. Mitral Valve The mitral valve is normal in structure. No evidence of mitral valve stenosis. Trace mitral regurgita tion. Tricuspid Valve The tricuspid valve is normal in structure. There is no tricuspid valve stenosis. Trace tricuspid reg urgitation. Unable to assess PA pressure. Pulmonic Valve Pulmonic valve is not well visualized. There is no pulmonic valvular stenosis. There is no pulmonic v alvular regurgitation. Great Vessels The aortic root is normal in size. Ascending aorta is not well visualized. Aortic arch is not well vi sualized. The IVC was not visualized. Pericardium Technically limited subcostal imaging. 2D Dimensions IVSD d PLAX 0.84 cm F: 0.6-1.0 LVPW d PLAX 0.87 cm F: 0.6 - 1.0 LVID d PLAX 4.17 cm F: 3.8 - 5.2 LVDs 3.00 cm F: 2.2 - 3.5 Ao Root d 2.67 cm F: 2.7 - 3.3 LV EF Teichholz 54.3 % FS 27.75 % M-Mode TAPSE 1.59 cm (M/F) >1.7 LV Diastology MV E' lateral 0.122 (>0.1 m/s) E/A Ratio 1.0 LV E/e LAT 4.30 (<14) MV E Vmax 0.53 (0.4-1.3 m/s) MV E/E' lateral 4.32 MV A Vmax 0.55 (0.4-1.3 m/s) MV E/A Ratio 0.96 Aortic Valve LVOT Area 2.91 cm2 AoV Area Vmax 1.91 cm2 LVOT Vmax 0.74 m/s AoV Area/ BSA (Vmax) 0.98 cm2/m2 LVOT Mean Minh. 0.48 m/s GENEVIEVE Mean Minh. 1.65 cm2 LVOT Peak Grad 2.2 mmHg GENEVIEVE Mean Minh. Index 0.85 cm2/m2 LVOT Mean Grad 1.1 mmHg LVOT VTI 0.117 m LVOT Diam s 1.90 cm AoV Vmax 1.13 m/s Velocity Ratio 0.65 AoV Mean Minh. 0.85 m/s AoV Peak Grad 5.1 mmHg LVOT SV 34.02 mL AoV Mean Grad 3.1 mmHg AoV VTI 0.147 m AoV Area VTI 2.32 cm2 AoV Area/ BSA (VTI) 1.19 cm/m2 Mitral Valve MV DT 158 (160-240 msec) MV PHT 46 msec MV Area PHT 4.81 cm2 Pulmonary Valve PV Vmax 0.92 (0.5-1.5 m/s) RVOT Peak Gr. 2.32 mmHg PV Peak Grad 3.4 mmHg RVOT Mean Gr. 1.05 mmHg PV Mean Grad 2.0 mmHg RVOT VTI 0.128 m PV VTI 0.136 m RVOT Vmax 0.76 m/s
--- NOTE | 2022-03-17 12:31 | W.ANESPOSTOP ---
Postoperative Evaluation Date, Time and Location Date Performed: 03/17/22 Time Performed: 12:31 Patient Location: Intensive Care Unit Vital Signs Most Recent Imported Vital Signs: Most Recent Vital Signs Temp Pulse Resp BP Pulse Ox 36.0 C L 85 14 108/74 96 03/17/22 09:10 03/17/22 11:00 03/17/22 11:10 03/17/22 11:00 03/17/22 11:10 Pain Score Most Recent Pain Score: Most Recent Pain Score Pain Level 0 03/17/22 09:10 Assessment Mental Status: Awake (Alert & Oriented to Patient Baseline) Airway and Respiratory Function: Patent airway with normal (patient baseline) respiratory exam Cardiovascular Function: Hemodynamically Stable Hydration Status: Adequately Hydrated Nausea & Vomiting: Active Nausea or Vomiting Present Nausea and Vomiting Management: Nausea and vomiting active, being addressed with medication Pain: Pt. Denies Any Pain Peripheral Nerve Block: Regional nerve block not resolved at time of post operative discharge
[2022-03-17 12:41] LABS: Lactate 1.5 mmol/L (0.6-1.4)
[2022-03-17] MEDS: MAGNESIUM SULFATE 2 GM/50 ML BAG IVPB (12:42)
--- NOTE | 2022-03-17 13:09 | W.ANESPOSTOP ---
Postoperative Evaluation Date, Time and Location Date Performed: 03/17/22 Time Performed: 13:09 Patient Location: Day Surgery Unit Vital Signs Most Recent Imported Vital Signs: Most Recent Vital Signs Temp Pulse Resp BP Pulse Ox 36.0 C L 85 14 108/74 96 03/17/22 09:10 03/17/22 11:00 03/17/22 11:10 03/17/22 11:00 03/17/22 11:10 Most Recent Vital Signs Temp Pulse Resp BP Pulse Ox 36.0 C L 85 14 108/74 96 03/17/22 09:10 03/17/22 11:00 03/17/22 11:10 03/17/22 11:00 03/17/22 11:10 Pain Score Most Recent Pain Score: Most Recent Pain Score Pain Level 0 03/17/22 09:10 Assessment Mental Status: Awake (Alert & Oriented to Patient Baseline) Airway and Respiratory Function: Patent airway with normal (patient baseline) respiratory exam Cardiovascular Function: Hemodynamically Stable Hydration Status: Adequately Hydrated Nausea & Vomiting: No Nausea or Vomiting Pain: Pain is Moderate or Severe Postoperative Pain Management: Patient having pain, declines treatment, wishes to be discharged Peripheral Nerve Block: Patient did not receive a nerve block
[2022-03-17 14:03] LABS: Abs Immature Grans 0.18 10^3/uL (0.0-0.06); HCT 34.2 % (36.0-46.0); HGB 11.1 g/dL (11.2-15.7); MCH 27.8 pg (27.0-33.0); MCHC 32.5 % (32.0-36.0); MCV 86 fL (80-95); MPV 9.7 fL (8.0-11.0); Platelet Count 322 10^3/uL (130-400); RDW 15.4 % (11.7-14.6); RDW-SD 48.6 fL
[2022-03-17 14:05] LABS: WBC 25.38 10^3/uL (4.4-10.8)
[2022-03-17 14:12] LABS: Troponin I < 50 ng/L (<or=60)
[2022-03-17 14:14] LABS: Anion Gap 6.9 mmol/L (3-11); BUN 15 mg/dL (7-18); CO2 24.1 mmol/L (21.0-32.0); CREATININE 0.8 mg/dL (0.55-1.02); Calcium 8.1 mg/dL (8.5-10.1); Chloride 106 mmol/L (98-107); Estimated GFR 89.15 (mL/min/1.73m2); Glucose 103 mg/dL (74-106); Potassium 4.3 mmol/L (3.5-5.1); Sodium 137 mmol/L (136-145)
[2022-03-17 14:38] LABS: Absolute Lymphocyte Count 1.02 10^3/uL (1.2-3.4); Absolute Monocyte Count 2.03 10^3/uL (0.1-0.8); Absolute Neutrophil Count 22.33 10^3/uL (1.2-6.7); Bands % 12; Diff Comment Manual Differential; RBC Morphology Normal
--- NOTE | 2022-03-17 18:45 | DI.RAD_ITS ---
Exam(s) XR PORTABLE CHEST AP EXAM: XR PORTABLE CHEST AP CLINICAL HISTORY: fever, cough. TECHNIQUE: 2D digital imaging was performed. COMPARISON: CR XR PORTABLE CHEST AP from 03/17/2022 FINDINGS: Single AP portable view. Distal tip of the right jugular central line is in the upper right atrium, unchanged. Heart size is upper normal. The mediastinum is not widened. Lungs are clear. No infiltrates nor obvious pleural effusions. IMPRESSION: No acute pulmonary findings on this single AP portable view of the chest. Right central jugular line tip unchanged in position, as above. DATA REPOSITORY: RADIATION DOSE DELIVERED: All CT scans at this facility use at least one of these dose optimization techniques: automated exposure control; mA and/or kV adjustment per patient size (includes targeted e xams where dose is matched to clinical indication); or iterative reconstruction.
--- NOTE | 2022-03-17 19:39 | DI.VRAD_ITS ---
PROCEDURE INFORMATION: Exam: XR Chest Exam date and time: 03/17/2022 6:58 PM Age: 51 years old Clinical indication: Other: Fever, cough TECHNIQUE: Imaging protocol: Radiologic exam of the chest. Views: 1 view. COMPARISON: CR XR PORTABLE CHEST AP 03/17/2022 9:21 AM FINDINGS: Tubes, catheters and devices: Right neck central venous catheter in stable position with catheter tip within the superior cavoatrial junction. Lungs: Unremarkable. No consolidation. Pleural spaces: Unremarkable. No pleural effusion. No pneumothorax. Heart/Mediastinum: Unremarkable. No cardiomegaly. Bones/joints: Unremarkable. IMPRESSION: No evidence of acute cardiopulmonary process. Dictated and Authenticated by: Lucian Babcock MD. Ordering:.[facility] Lety Bowie MD
[2022-03-17] MEDS: Aspirin E.C. 81 MG TABEC PO (19:52)
[2022-03-17] MEDS: AMPICILLIN/SULBACTAM 3 GM in Normal Saline 100 ML IVPB (21:17)
[2022-03-17 22:03] LABS: Procalcitonin 8.1 ng/mL
[2022-03-17 22:35] LABS: Bilirubin Negative (Negative); Blood Large (Negative); Clarity Clear (Clear); Glucose Negative (Negative); Ketones Negative (Negative); Leukocyte Esterase Negative (Negative); Nitrite Negative (Negative); Urobilinogen 0.2 EU/dL (Up TO 0.2); pH 5.5 (5-8)
[2022-03-17 22:47] LABS: Bacteria Negative HPF (Negative); C & S Indicated? C&S Done As Ordered; Casts Negative LPF (Negative); Crystals Negative HPF (Negative); Epithelial Cells Negative HPF (Negative); Mucus Negative (Negative); Other Cells Negative (Negative); RBC 20-50 HPF (0-2)
[2022-03-18] MEDS: AMPICILLIN/SULBACTAM 3 GM in Normal Saline 100 ML IVPB ×2 (02:10→08:29)
[2022-03-18 03:10] VITALS: BP 111/73; PULSE 97; RESP 19; TEMP 37.1; O2SAT 100
[2022-03-18 07:16] LABS: Abs Immature Grans 0.04 10^3/uL (0.0-0.06); Absolute Lymphocyte Count 2.17 10^3/uL (1.2-3.4); Absolute Monocyte Count 0.41 10^3/uL (0.1-0.8); Absolute Neutrophil Count 9.79 10^3/uL (1.2-6.7); Basophils % 0.5; Eosinophils % 6.2; HCT 30.3 % (36.0-46.0); HGB 9.7 g/dL (11.2-15.7); Immature Grans % 0.3; Lymphocytes % 16.3; MCH 27.6 pg (27.0-33.0); MCV 86 fL (80-95); Monocytes % 3.1; Neutrophils % 73.6; Platelet Count 303 10^3/uL (130-400); RBC 3.52 10^6/uL (3.93-5.22); RDW 15.9 % (11.7-14.6); RDW-SD 49.7 fL
[2022-03-18 07:19] LABS: Absolute Basophil Count 0.07 10^3/uL (0.0-0.2); Absolute Eosinophil Count 0.82 10^3/uL (0.0-0.7)
[2022-03-18 07:24] VITALS: BP 112/69; PULSE 98; RESP 18; TEMP 37; O2SAT 100
[2022-03-18 07:32] LABS: ALT 43 U/L (14-59); AST 22 U/L (15-37); Alkaline Phosphatase 90 U/L (46-116); Anion Gap 1.1 mmol/L (3-11); BUN 8 mg/dL (7-18); Bilirubin, Total 0.3 mg/dL (0.2-1.0); CO2 26.9 mmol/L (21.0-32.0); CREATININE 0.8 mg/dL (0.55-1.02); Calcium 8.2 mg/dL (8.5-10.1); Chloride 105 mmol/L (98-107); Estimated GFR 89.15 (mL/min/1.73m2); Glucose 102 mg/dL (74-106); Magnesium 2.1 mg/dL (1.8-2.4); Potassium 3.8 mmol/L (3.5-5.1); Sodium 133 mmol/L (136-145); Total Protein 6.6 g/dL (6.4-8.2)
[2022-03-18] MEDS: Aspirin E.C. 81 MG TABEC PO (08:28)
[2022-03-18] MEDS: Pantoprazole 40 MG TABCR PO (08:28)
--- NOTE | 2022-03-18 09:20 | W.PM.PROGNOT ---
Date of Service Date of service: 03/18/22 Time of Service: 09:20 Assessment and Plan Assessment and plan (1) Shock due to anesthesia: Status: Resolved Assessment and plan: Likely secondary to high spinal injection of bupivacaine leading to respiratory and circulatory failure causing hypotension, bradycardia and respiratory depression. Successfully resuscitated w/ vasopressors and intubation w/ mechanical ventilation. Post extubation she had some coughing up purulent mucous according to ICU nursing staff. Thus repeat labs, blood cultures and CXR were obtained when she had a fever last night. She was empirically placed on Unasyn for possible aspiration event. she is doing well and I would dc her home today w/ 3 days of Augmentin. I would allow her a couple weeks to recuperate then she should be fine for general anesthetic to proceed w/ knee replacements (2) Hypokalemia: Status: Resolved Assessment and plan: resolved w/ oral and iv replacement yesterday (3) Lactic acidosis: Status: Resolved (4) Leukocytosis: Status: Resolved (5) Respiratory failure with hypoxia: Status: Resolved Subjective Subjective Interval history since last seen: patient is doing well this morning. afebrile (did have fever to 38 C last night). She denies any dyspnea, chest pain or cough. WBC is down today 13,000 from peak of 25,000. Blood cultures were taken and results are pending. Patient was put on Unasyn last night for potential aspiration event from yesterday. However, CXR last night did not show any pneumonic consolidation. she has been stable overnight and would like to return home today. I saw her w/ Dr. Brower and I feel that she is ready for discharge. Exam Narrative Exam Narrative: Tracy was seen in her room w/ her , Jamir present and Dr. Brower also was present Tracy has no dyspnea, she did have slight cough but is not producing any purulent mucous Lungs: clear to auscultation Heart: RRR, no murmur, rub or gallop Left brachial site looks clear, no hematoma or drainage Right groin: site of attempt at an arterial line yesterday also looks clean w/out hematoma or discharge Objective Last Vital Signs Temp 37.0 C 03/18/22 07:24 Pulse 98 H 03/18/22 07:24 Resp 18 03/18/22 07:24 BP 112/69 03/18/22 07:24 Pulse Ox 100 03/18/22 07:24 Laboratory Results - last 24 hr 03/17/22 03/17/22 03/17/22 08:25 08:30 12:35 WBC RBC Hgb Hct MCV MCH MCHC RDW Plt Count MPV Immature Gran % Neutrophils % Band Neutrophils % Lymphocytes % Monocytes % Eosinophils % Basophils % Nucleated RBC % Absolute Neutrophils Absolute Lymphocytes Absolute Monocytes Absolute Eosinophils Absolute Basophils RBC Morphology VBG Lactate Sodium 139 Potassium 2.5 L* D Chloride Carbon Dioxide Anion Gap 11.3 H BUN Creatinine Est GFR (CKD-EPI 2020) Glucose Calcium Magnesium 1.7 L Total Bilirubin AST ALT Alkaline Phosphatase Troponin I < 50 Total Protein Albumin Procalcitonin Urine Color Urine Clarity Urine pH Ur Specific [place] Urine Protein Urine Ketones Urine Blood Urine Nitrite Urine Bilirubin Urine Urobilinogen Ur Leukocyte Esterase Urine RBC Urine WBC Ur Epithelial Cells Urine Crystals Urine Bacteria Urine Casts Urine Mucus Urine Other Ur Culture Indicated? Urine Glucose 03/17/22 03/17/22 03/17/22 12:35 13:57 13:57 WBC 25.38 H* RBC 4.00 Hgb 11.1 L Hct 34.2 L MCV 86 MCH 27.8 MCHC 32.5 RDW 15.4 H Plt Count 322 MPV 9.7 Immature Gran % 0.0 Neutrophils % 76.0 Band Neutrophils % 12 Lymphocytes % 4.0 Monocytes % 8.0 Eosinophils % 0.0 Basophils % 0.0 Nucleated RBC % 0.0 Absolute Neutrophils 22.33 H Absolute Lymphocytes 1.02 L Absolute Monocytes 2.03 H Absolute Eosinophils 0.00 Absolute Basophils 0.00 RBC Morphology Normal VBG Lactate 1.5 H Sodium Potassium Cancelled Chloride Carbon Dioxide Anion Gap BUN Creatinine Est GFR (CKD-EPI 2020) Glucose Calcium Magnesium Total Bilirubin AST ALT Alkaline Phosphatase Troponin I Total Protein Albumin Procalcitonin Urine Color Urine Clarity Urine pH Ur Specific [place] Urine Protein Urine Ketones Urine Blood Urine Nitrite Urine Bilirubin Urine Urobilinogen Ur Leukocyte Esterase Urine RBC Urine WBC Ur Epithelial Cells Urine Crystals Urine Bacteria Urine Casts Urine Mucus Urine Other Ur Culture Indicated? Urine Glucose 03/17/22 03/17/22 03/17/22 13:57 21:05 22:00 WBC RBC Hgb Hct MCV MCH MCHC RDW Plt Count MPV Immature Gran % Neutrophils % Band Neutrophils % Lymphocytes % Monocytes % Eosinophils % Basophils % Nucleated RBC % Absolute Neutrophils Absolute Lymphocytes Absolute Monocytes Absolute Eosinophils Absolute Basophils RBC Morphology VBG Lactate Sodium 137 Potassium 4.3 D Chloride 106 Carbon Dioxide 24.1 Anion Gap 6.9 BUN 15 Creatinine 0.8 Est GFR (CKD-EPI 2020) 89.15 Glucose 103 Calcium 8.1 L Magnesium Total Bilirubin AST ALT Alkaline Phosphatase Troponin I Total Protein Albumin Procalcitonin 8.1 Urine Color Yellow Urine Clarity Clear Urine pH 5.5 Ur Specific [place] 1.010 Urine Protein Negative Urine Ketones Negative Urine Blood Large H Urine Nitrite Negative Urine Bilirubin Negative Urine Urobilinogen 0.2 Ur Leukocyte Esterase Negative Urine RBC 20-50 H Urine WBC 5-10 Ur Epithelial Cells Negative Urine Crystals Negative Urine Bacteria Negative Urine Casts Negative Urine Mucus Negative Urine Other Negative Ur Culture Indicated? C&S Done As Ordered Urine Glucose Negative 03/18/22 03/18/22 06:27 06:27 WBC 13.30 H RBC 3.52 L Hgb 9.7 L Hct 30.3 L MCV 86 MCH 27.6 MCHC 32.0 RDW 15.9 H Plt Count 303 MPV 10.0 Immature Gran % 0.3 Neutrophils % 73.6 Band Neutrophils % Lymphocytes % 16.3 Monocytes % 3.1 Eosinophils % 6.2 Basophils % 0.5 Nucleated RBC % 0.0 Absolute Neutrophils 9.79 H Absolute Lymphocytes 2.17 Absolute Monocytes 0.41 Absolute Eosinophils 0.82 H Absolute Basophils 0.07 RBC Morphology VBG Lactate Sodium 133 L Potassium 3.8 Chloride 105 Carbon Dioxide 26.9 Anion Gap 1.1 L BUN 8 Creatinine 0.8 Est GFR (CKD-EPI 2020) 89.15 Glucose 102 Calcium 8.2 L Magnesium 2.1 Total Bilirubin 0.3 AST 22 ALT 43 Alkaline Phosphatase 90 Troponin I Total Protein 6.6 Albumin 3.0 L Procalcitonin Urine Color Urine Clarity Urine pH Ur Specific [place] Urine Protein Urine Ketones Urine Blood Urine Nitrite Urine Bilirubin Urine Urobilinogen Ur Leukocyte Esterase Urine RBC Urine WBC Ur Epithelial Cells Urine Crystals Urine Bacteria Urine Casts Urine Mucus Urine Other Ur Culture Indicated? Urine Glucose
--- NOTE | 2022-03-18 09:37 | W.PM.DS.N ---
DS: Diagnosis Discharge Diagnosis (1) Respiratory failure with hypoxia: Status: Resolved (2) Shock due to anesthesia: Status: Resolved (3) Hypokalemia: Status: Resolved (4) Lactic acidosis: Status: Resolved (5) Leukocytosis: Status: Resolved (6) Bilateral primary osteoarthritis of knee: Status: Chronic Discharge Plan Disposition Patient Disposition: HOME Condition: Good Discharge Details Reason For Visit: Hypotension Admit Date/Time: 03/17/22 08:58 Admit Provider: Teofilo Brower Attending Provider: Jamir Davidson Primary Care Provider: Nayely Verma Hospital Course Hospital Course: Tracy was admitted to the ICU following attempted bilateral knee replacements. During the induction phase of the surgery, after the spinal anesthetic, there was significant hypotension as well as hypoxia which was not responding to typical treatments. Central access was obtained as well as arterial pressures and intubation to protect the airway. A host of lab work was performed in addition to CT scan for PE, chest x-ray, and echocardiogram. All these tests were normal. She was quickly weaned off of any blood pressure support and was extubated without difficulty. On hospital day #2 her labs had rebounded to a more normal level and she was without major complaint. She denied chest pain or shortness of breath. She had no cough. There was concern about potential aspiration with extubation and she did have a fever but this has resolved as well as her leukocytosis. The working diagnosis is either a high spinal or sensitivity to anesthetic induction. Home Meds and New Rx's Prescriptions: New amoxicillin-pot clavulanate [Augmentin] 500-125 mg tablet 1 tab PO BID Qty: 6 0RF Continued amitriptyline 25 mg tablet 25 mg PO QPM Qty: 90 3RF citalopram 40 mg tablet 40 mg PO DAILY Qty: 90 3RF loratadine 10 mg tablet 10 mg PO DAILY Qty: 30 3RF triamcinolone acetonide 0.1 % cream 1 applic topical BID Qty: 30 2RF duloxetine 30 mg capsule,delayed release(DR/EC) 30 mg PO DAILY Qty: 90 3RF Discontinued naproxen 500 mg tablet 500 mg PO BID PRN LARRY Qty: 180 2RF Discharge Instructions Additional Instructions: You may resume activities as tolerated. However, you should be patient with recovery. It is normal to be quite fatigued. Advance your activity slowly. You should complete the antibiotic and prophylaxis for potential aspiration pneumonia. I recommend a high-protein diet along with multivitamin. You may resume all other medications and treatments for your knee as we await rescheduling of your knee replacement surgery. Referrals: Teofilo Brower MD [ [facility] STAFF PHYSICIAN] - Activity:: Activity as Tolerated Equipment/Supplies:: No Equipment Needed Diet:: As Tolerated Discharge Orders Discharge Orders: Discharge Order (Routine); Ordered 03/18/22 Ordered By: Teofilo Brower DS: Summary Time Spent with Patient providing and/or coordinating discharge services: Less than 30 minutes Status at Discharge Functional status at discharge: independent ambulation Overall status at discharge: patient is progressing back to baseline Mental Status: mental status grossly normal Speech and Movement: speech and movement normal Mood: congruent mood Affect: normal affect Exam Narrative Exam Narrative: Sitting up in the hospital bed. No acute distress. Breathing comfortably without audible wheezing or distress. Central line within the right neck. No bleeding through the dressings about the arterial lines which have been removed. Psych Mental Status: mental status grossly normal Speech and Movement: speech and movement normal Mood: congruent mood Affect: normal affect DS: Data Vitals/I&O Vitals and I&O: Vital Signs Temperature 37.0 C 03/18/22 07:24 Temperature Source Tympanic 03/18/22 07:24 Pulse 98 H 03/18/22 07:24 Pulse Rhythm Regular 03/18/22 09:34 Pulse 106 H 03/17/22 16:31 Respiratory Rate 18 03/18/22 07:24 Respiratory Effort Non-Labored 03/18/22 09:34 Respiratory Depth Normal 03/18/22 09:34 Respiratory Pattern Normal 03/18/22 09:34 Blood Pressure 112/69 03/18/22 07:24 Blood Pressure Mean 73 03/17/22 16:31 Blood Pressure Position Sitting 03/17/22 07:28 Pulse Oximetry 100 03/18/22 07:24 Oxygen Delivery Method Room Air 03/18/22 07:24 Oxygen Flow Rate 0 03/18/22 07:24 Fraction of Inspired Oxygen (FIO2) 100 03/17/22 09:10 Pain Level 0 03/18/22 07:24 Comment 03/17/22 07:28 Arterial Systolic 109 03/17/22 13:08 Arterial Diastolic 57 03/17/22 13:08 Arterial Mean 87 03/17/22 13:16 Intake & Output 03/17/22 03/17/22 03/18/22 11:59 23:59 11:59 Intake Total 155.800 / 2256.467 2100.667 / 2256.467 200 / 200 Output Total 500 / 500 Balance 155.800 / 2517.037 9969.667 / 1756.467 200 / 200 Weight 93 kg 94.256 kg Intake: IV 155.800 / 2216.467 2060.667 / 2216.467 200 / 200 Oral 40 / 40 Output: Urine 500 / 500 Other: Urine Color Yellow Urine Appearance Cloudy Cloudy Urine Odor Normal Voiding Methods Toilet Toilet Data Completed and Pending Labs on day of discharge: Labs from last 24 hours 03/18/22 03/18/22 03/18/22 Unknown 06:27 06:27 WBC 13.30 H RBC 3.52 L Hgb 9.7 L Hct 30.3 L MCV 86 MCH 27.6 MCHC 32.0 RDW 15.9 H Plt Count 303 MPV 10.0 Immature Gran % 0.3 Neutrophils % 73.6 Band Neutrophils % Lymphocytes % 16.3 Monocytes % 3.1 Eosinophils % 6.2 Basophils % 0.5 Nucleated RBC % 0.0 Absolute Neutrophils 9.79 H Absolute Lymphocytes 2.17 Absolute Monocytes 0.41 Absolute Eosinophils 0.82 H Absolute Basophils 0.07 RBC Morphology VBG Lactate Sodium 133 L Potassium 3.8 Chloride 105 Carbon Dioxide 26.9 Anion Gap 1.1 L BUN 8 Creatinine 0.8 Est GFR (CKD-EPI 2020) 89.15 Glucose 102 Calcium 8.2 L Magnesium 2.1 Total Bilirubin 0.3 AST 22 ALT 43 Alkaline Phosphatase 90 Troponin I Total Protein 6.6 Albumin 3.0 L Tryptase Procalcitonin Urine Color Urine Clarity Urine pH Ur Specific [place] Urine Protein Urine Ketones Urine Blood Urine Nitrite Urine Bilirubin Urine Urobilinogen Ur Leukocyte Esterase Urine RBC Urine WBC Ur Epithelial Cells Urine Crystals Urine Bacteria Urine Casts Urine Mucus Urine Other Ur Culture Indicated? Urine Glucose Add-On Test Request Pending 03/17/22 03/17/22 03/17/22 22:00 21:05 13:57 WBC RBC Hgb Hct MCV MCH MCHC RDW Plt Count MPV Immature Gran % Neutrophils % Band Neutrophils % Lymphocytes % Monocytes % Eosinophils % Basophils % Nucleated RBC % Absolute Neutrophils Absolute Lymphocytes Absolute Monocytes Absolute Eosinophils Absolute Basophils RBC Morphology VBG Lactate Sodium 137 Potassium 4.3 D Chloride 106 Carbon Dioxide 24.1 Anion Gap 6.9 BUN 15 Creatinine 0.8 Est GFR (CKD-EPI 2020) 89.15 Glucose 103 Calcium 8.1 L Magnesium Total Bilirubin AST ALT Alkaline Phosphatase Troponin I Total Protein Albumin Tryptase Procalcitonin 8.1 Urine Color Yellow Urine Clarity Clear Urine pH 5.5 Ur Specific [place] 1.010 Urine Protein Negative Urine Ketones Negative Urine Blood Large H Urine Nitrite Negative Urine Bilirubin Negative Urine Urobilinogen 0.2 Ur Leukocyte Esterase Negative Urine RBC 20-50 H Urine WBC 5-10 Ur Epithelial Cells Negative Urine Crystals Negative Urine Bacteria Negative Urine Casts Negative Urine Mucus Negative Urine Other Negative Ur Culture Indicated? C&S Done As Ordered Urine Glucose Negative Add-On Test Request 03/17/22 03/17/22 03/17/22 13:57 13:57 12:35 WBC 25.38 H* RBC 4.00 Hgb 11.1 L Hct 34.2 L MCV 86 MCH 27.8 MCHC 32.5 RDW 15.4 H Plt Count 322 MPV 9.7 Immature Gran % 0.0 Neutrophils % 76.0 Band Neutrophils % 12 Lymphocytes % 4.0 Monocytes % 8.0 Eosinophils % 0.0 Basophils % 0.0 Nucleated RBC % 0.0 Absolute Neutrophils 22.33 H Absolute Lymphocytes 1.02 L Absolute Monocytes 2.03 H Absolute Eosinophils 0.00 Absolute Basophils 0.00 RBC Morphology Normal VBG Lactate 1.5 H Sodium Potassium Cancelled Chloride Carbon Dioxide Anion Gap BUN Creatinine Est GFR (CKD-EPI 2020) Glucose Calcium Magnesium Total Bilirubin AST ALT Alkaline Phosphatase Troponin I Total Protein Albumin Tryptase Procalcitonin Urine Color Urine Clarity Urine pH Ur Specific [place] Urine Protein Urine Ketones Urine Blood Urine Nitrite Urine Bilirubin Urine Urobilinogen Ur Leukocyte Esterase Urine RBC Urine WBC Ur Epithelial Cells Urine Crystals Urine Bacteria Urine Casts Urine Mucus Urine Other Ur Culture Indicated? Urine Glucose Add-On Test Request 03/17/22 03/17/22 03/17/22 12:35 08:30 08:25 WBC RBC Hgb Hct MCV MCH MCHC RDW Plt Count MPV Immature Gran % Neutrophils % Band Neutrophils % Lymphocytes % Monocytes % Eosinophils % Basophils % Nucleated RBC % Absolute Neutrophils Absolute Lymphocytes Absolute Monocytes Absolute Eosinophils Absolute Basophils RBC Morphology VBG Lactate Sodium Potassium Chloride Carbon Dioxide Anion Gap BUN Creatinine Est GFR (CKD-EPI 2020) Glucose Calcium Magnesium 1.7 L Total Bilirubin AST ALT Alkaline Phosphatase Troponin I < 50 Total Protein Albumin Tryptase Pending Procalcitonin Urine Color Urine Clarity Urine pH Ur Specific [place] Urine Protein Urine Ketones Urine Blood Urine Nitrite Urine Bilirubin Urine Urobilinogen Ur Leukocyte Esterase Urine RBC Urine WBC Ur Epithelial Cells Urine Crystals Urine Bacteria Urine Casts Urine Mucus Urine Other Ur Culture Indicated? Urine Glucose Add-On Test Request 03/17/22 22:00 Urine - Voided Urine Culture - Pending 03/17/22 21:14 Blood Blood Culture - Pending 03/17/22 21:05 Blood Blood Culture - Pending Preliminary micro results at discharge 03/17/22 22:00 Urine Culture - Pending Urine - Voided 03/17/22 21:14 Blood Culture - Pending Blood 03/17/22 21:05 Blood Culture - Pending Blood PFSH All Active Problems (Updated 03/18/22 @ 09:45 by Jamir Davidson MD) BMI 34.0-34.9,adult (Chronic) Elevated LFTs (Acute) 08/2021 - AST=68, ALT=90 (asymmptomatic) 12/2021 - AST 23, ALT 32 Hyperlipidemia (Chronic 09/22/12) ACC/AHA calc. risk = 1.8% despite elevations (Statin not indicated) Dermatitis (Chronic) hands Bilateral primary osteoarthritis of knee (Chronic) Most recent injection: 06/19/2019 bilaterally Anxiety (Chronic) depression Medical History Allergic rhinitis Encounter for annual physical exam Headache Left shoulder pain Osteoarthritis (07/03/13) knees bilat Family History Mother Hyperlipidemia Father , age 78 Essential hypertension Asthma Alcohol abuse Sister Hyperlipidemia Sister No problems noted. Sister No problems noted. Brother Hyperlipidemia Paternal Grandmother Pancreatic cancer Maternal Grandfather Heart disease Paternal Grandfather Heart disease Son No problems noted. Daughter No problems noted. Daughter No problems noted. Social History Smoking/Tobacco Use Status: Never Smoking risk assessment performed?: Yes Alcohol Intake: current Alcohol Intake frequency: holidays/special occasions only Alcohol type: beer Drug use: Never Substance use type: does not use Caregiver/Support person: No Household members: spouse Communication Needs: None current occupation: CAREGIVER Pets and animals: No Sexually active: Yes Do you think of yourself as: straight/heterosexual Current gender identity: female What is your relationship status?: How often do you talk on the phone with friends or family?: three or more times per week How often do you get together with friends or relatives?: once per week Do you belong to any clubs or organized social groups?: no Panel score (0-1 are the most socially isolated patients): 2 Beatriz/Oriental Orthodox: No preference Special beatriz needs: No Seatbelt use: always Drive intox or ride w/intox armor reconnaissance vehicle driver: No Do you feel safe at home: Yes Do you feel safe in your relationship?: Yes Victim of physical abuse: No Victim of emotional abuse: No Victim of sexual abuse: No Would you like helpful sources: No
[2022-03-18 11:37] LABS: Lab Add On Test DONE
[2022-03-18 11:45] LABS: Reticulocyte 1.1 % (0.5-2.4)
[2022-03-18 11:49] LABS: Total Iron Binding Capacity 343 ug/dL (250-450)
[2022-03-18 12:03] LABS: Ferritin 18 ng/mL (8-252)
== END 2022-03-18 11:14 | disposition home or self-care (01) | DRG 922 ==
LOC: SUR 07:14 → ICU 14:51 → MS 03-18 08:19
PROVIDERS: Nurse Anesthetist, Certified Registered; Admitting Provider Student in an Organized Health Care Education/Training Program; Visit Provider Internal Medicine
PROC: 0SRC0JZ Replacement of Right Knee Joint with Synthetic Substitute, Open Approach (ICD-10-PCS; CPT 27447; principal; 2022-03-17 07:30)
DX: T88.2XXA Shock due to anesthesia, initial encounter (principal); J96.01 Acute respiratory failure with hypoxia; E87.2 Acidosis; M17.0 Bilateral primary osteoarthritis of knee; Z53.09 Procedure and treatment not carried out because of other contraindication; E78.5 Hyperlipidemia, unspecified; F41.9 Anxiety disorder, unspecified; R74.01 Elevation of levels of liver transaminase levels; T41.3X5A Adverse effect of local anesthetics, initial encounter; Y92.234 Operating room of hospital as the place of occurrence of the external cause; E87.6 Hypokalemia; D72.829 Elevated white blood cell count, unspecified; R50.9 Fever, unspecified
CPT/HCPCS: 27447; 36415; 76942; 80048; 80053; 82805; 83520; 84145; 87040; 93306; 71045; 81003; 81015; 82728; 83550; 83605; 83735; 84132; 84484; 85025; 85045; 87086; 93005; 93010; 99223; 99231; J0171; J0295; J1100; J2250; J2370; J2405; J3480

== ENCOUNTER 2022-03-26 03:17 | Outpatient (CLI) | payer OTHER, SELFPAY | END 2022-03-26 03:18 | disposition home or self-care (01) | LOC: LBO 03:17 | PROVIDERS: Visit Provider Student in an Organized Health Care Education/Training Program | DX: R74.8 Abnormal levels of other serum enzymes (principal); T78.2XXA Anaphylactic shock, unspecified, initial encounter | CPT/HCPCS: 36415; 83520 ==

== ENCOUNTER 2022-05-12 18:11 | Outpatient (REF) | payer OTHER, SELFPAY ==
[2022-05-12 18:14] LABS: Abs Immature Grans 0.05 10^3/uL (0.0-0.06); Absolute Basophil Count 0.07 10^3/uL (0.0-0.2); Absolute Eosinophil Count 0.41 10^3/uL (0.0-0.7); Absolute Lymphocyte Count 2.51 10^3/uL (1.2-3.4); Absolute Monocyte Count 0.63 10^3/uL (0.1-0.8); Absolute Neutrophil Count 5.13 10^3/uL (1.2-6.7); Basophils % 0.8; Eosinophils % 4.7; HCT 33.9 % (36.0-46.0); HGB 10.4 g/dL (11.2-15.7); Immature Grans % 0.6; Lymphocytes % 28.5; MCH 26.5 pg (27.0-33.0); MCHC 30.7 % (32.0-36.0); MCV 86 fL (80-95); MPV 10.1 fL (8.0-11.0); Monocytes % 7.2; Neutrophils % 58.2; Platelet Count 441 10^3/uL (130-400); RBC 3.93 10^6/uL (3.93-5.22); RDW 14.3 % (11.7-14.6); RDW-SD 45.8 fL
== END 2022-05-12 18:12 | disposition home or self-care (01) ==
LOC: LBN 18:11
PROVIDERS: Visit Provider Student in an Organized Health Care Education/Training Program
DX: D72.10 Eosinophilia, unspecified (principal)
CPT/HCPCS: 85025

== ENCOUNTER 2022-05-15 02:20 | Outpatient (CLI) | payer OTHER, SELFPAY ==
[2022-05-15] MEDS: Albuterol HFA 18 GM 200 PUFF INH IH (16:01)
[2022-05-15] MEDS: Inhaler, Assist Device 1 EACH MC (16:01)
--- NOTE | 2022-05-15 16:55 | W.PFT ---
Date of service: 05/15/22 Time of Service: 15:00 Pulmonary Function Test Result Requesting Provider Shelley Indications: Anaphylaxis Interpretation Spirometry: There is no airflow limitation. There is no bronchodilator response. Lung Volumes: There is mild restrictive lung disease. Diffusion Capacity: The diffusion is slightly low. Airway Pressure: Normal airways resistance. Impression Mild restrictive lung disease with a decreased diffusion raises concern for a potential interstitial lung disease. Clinical Correlation therefore is recommended.
== END 2022-05-15 02:21 | disposition home or self-care (01) ==
LOC: RT 02:21
PROVIDERS: Visit Provider Student in an Organized Health Care Education/Training Program
DX: J98.4 Other disorders of lung (principal); J98.8 Other specified respiratory disorders; T41 Poisoning by, adverse effect of and underdosing of anesthetics and therapeutic gases
CPT/HCPCS: 94060; 94726; 94729

== ENCOUNTER 2022-09-01 02:13 | Outpatient (CLI) | payer OTHER, SELFPAY ==
[2022-09-01 15:44] LABS: HCT 33.7 % (36.0-46.0); HGB 10.3 g/dL (11.2-15.7); MCH 25.9 pg (27.0-33.0); MCHC 30.6 % (32.0-36.0); MCV 85 fL (80-95); MPV 9.4 fL (8.0-11.0); Platelet Count 385 10^3/uL (130-400); RBC 3.98 10^6/uL (3.93-5.22); RDW 17.2 % (11.7-14.6); RDW-SD 53.4 fL; WBC 8.35 10^3/uL (4.4-10.8)
[2022-09-01 16:21] LABS: ALT 33 U/L (14-59); AST 28 U/L (15-37); Albumin 3.9 g/dL (3.4-5.0); Alkaline Phosphatase 111 U/L (46-116); Anion Gap 9.6 mmol/L (3-11); BUN 9 mg/dL (7-18); Bilirubin, Total 0.3 mg/dL (0.2-1.0); CO2 26.4 mmol/L (21.0-32.0); CREATININE 0.8 mg/dL (0.55-1.02); Calcium 9.2 mg/dL (8.5-10.1); Calculated LDL 209 mg/dL (<100); Chloride 101 mmol/L (98-107); Cholesterol 283 mg/dL (<200); Estimated GFR 89.15 (mL/min/1.73m2); Glucose 91 mg/dL (74-106); HDL Cholesterol 58 mg/dL (40-60); Potassium 3.6 mmol/L (3.5-5.1); Sodium 137 mmol/L (136-145); TSH (W/Ref FT4) 1.44 uIU/mL (0.36-3.74); Total Protein 7.7 g/dL (6.4-8.2); Triglyceride 83 mg/dL (<150)
== END 2022-09-01 02:14 | disposition home or self-care (01) ==
LOC: LBO 02:13
PROVIDERS: PCP Nurse Practitioner Family; Visit Provider Nurse Practitioner Family
DX: Z00.00 Encounter for general adult medical examination without abnormal findings (principal); E78.5 Hyperlipidemia, unspecified; F41.8 Other specified anxiety disorders
CPT/HCPCS: 36415; 80053; 80061; 85027; 84443

== ENCOUNTER 2022-11-11 01:45 | Outpatient (CLI) | payer OTHER, SELFPAY ==
--- NOTE | 2022-11-11 09:00 | DI.MAMMO_ITS ---
Exam(s) MAMMO SCREENING EXAM: MAMMO SCREENING CLINICAL HISTORY: screening,z12.39 TECHNIQUE: Mammograms were interpreted according to the usual protocol including computer analysis w [employer] CAD system, tomosynthesis and C-view imaging. COMPARISON: 2016 through 2021 FINDINGS: The breasts are composed of heterogeneously dense fibroglandular densities, Breast Density category C . No suspicious masses or suspicious microcalcifications are seen. There is a smoothly marginated nodu le measuring 10 millimeters in diameter in the central breast tissue 5 cm from the nipple. Spot comp ression views and ultrasound are recommended. This likely represents a cyst. No skin thickening or abnormal axillary lymph nodes are seen. There has been no significant change in the right breast from prior exams. IMPRESSION: BI-RADS Category 0 - Assessment Incomplete: Need additional imaging evaluation with spot compression views and ultrasound. Breast Density Category C, heterogeneously Dense. The mammogram demonstrates the patient's breast tissue is dense. Dense breast tissue is very common a nd is not abnormal but dense breast tissue can make it harder to find cancer on a mammogram. Also, de nse breast tissue may increase breast cancer risk. This information about the result of the mammogram report was provided to the patient to raise their awareness. Use this report when you speak with the patient about their risks for breast cancer, which includes their family history. At that time, you may recommend additional screening tests (Ultrasound or MRI) as they might be useful based on their r isk. A negative radiographic report should not delay biopsy if a dominant or clinically suspicious mass is present. Up to ten percent of cancers are not identified on mammography. A negative report may reinforce clinical impression. Adenosis and dense breasts may obscure an underlying neoplasm. False positive reports average 6 to 10%.
== END 2022-11-11 02:05 ==
LOC: DI 01:45
PROVIDERS: PCP Nurse Practitioner Family; Visit Provider Nurse Practitioner Family
DX: Z12.31 Encounter for screening mammogram for malignant neoplasm of breast (principal); R92.2 Inconclusive mammogram
CPT/HCPCS: 77063; 77067

== ENCOUNTER 2022-11-11 02:52 | Outpatient (CLI) | payer OTHER, SELFPAY ==
[2022-11-11 14:50] LABS: HCT 35.9 % (36.0-46.0); HGB 11.3 g/dL (11.2-15.7); MCHC 31.5 % (32.0-36.0); MCV 86 fL (80-95); Platelet Count 332 10^3/uL (130-400); RBC 4.18 10^6/uL (3.93-5.22); RDW 16.1 % (11.7-14.6); WBC 9.47 10^3/uL (4.4-10.8)
[2022-11-11 15:44] LABS: Ferritin 129 ng/mL (8-252)
== END 2022-11-11 02:53 | disposition home or self-care (01) ==
LOC: LBO 02:53
PROVIDERS: PCP Nurse Practitioner Family; Visit Provider Nurse Practitioner Family
DX: D64.9 Anemia, unspecified (principal)
CPT/HCPCS: 36415; 85027; 82728

== ENCOUNTER 2022-11-23 01:37 | Outpatient (CLI) | payer OTHER, SELFPAY ==
--- NOTE | 2022-11-23 10:48 | DI.MAMMO_ITS ---
Exam(s) MG MAMMO SCREEN CALL BACK UNI US BREAST LT LIMITED EXAM: MG MAMMO SCREEN CALL BACK UNI CLINICAL HISTORY: SMOOTHLY MARGINATED 10 MM NODULE CENTRAL LT BREAST 5 CM FROM NIPPLE. TECHNIQUE: Craniocaudal and mediolateral oblique spot compression digital Mammography views of the l eft breast followed by Tomosynthesis and left breast ultrasound. COMPARISON: MG MG MAMMO SCREENING from 11/11/2022nd exams back to 2017 US US BREAST LT LIMITED from 11/23/2022 FINDINGS: Mammography/Tomosynthesis: Masses/Architectural Distortion: Persistent circumscribed nodule slightly medial to the nipple. Microcalcifictions: No suspicious pleomorphic-type are seen. Skin Thickening/Nipple Retraction: None. Left breast US: Echotexture: Normal appearance of the glandular tissue. Shadowing: No suspicious foci. Mass/cyst: Circumscribed ovoid homogeneous hypoechoic lesion without shadowing in the 10 o'clock posi tion 2 cm from the nipple which measures 8 x 4 by 10 mm. The either represents a proteinaceous cyst v ersus fibroadenoma. Ductal dilation: None. IMPRESSION: 1. No evidence of malignancy is noted. 2. 10 millimeter cyst versus fibroadenoma corresponding to the area of nodularity on mammogram. 3. The findings were discussed with the patient on the date of the examination. BI-RADS Category 3 - 6 month - Probably Benign Finding: Recommend follow-up mammography in 6 months Recommend follow-up mammography and ultrasound in 6 months Breast Density - Category C - Heterogeneously dense A mammogram that demonstrates density of C or D indicates the patient's breast tissue is dense. Dense breast tissue is very common and is not abnormal, but dense breast tissue can make it harder to find cancer on a mammogram. Also, dense breast tissue may increase their breast cancer risk. This informa tion about the result of the mammogram report was provided to the patient to raise their awareness. U se this report when you speak with the patient about their risks for breast cancer, which includes th eir family history. At that time, you may recommend for more screening tests (Ultrasound or MRI) as t hey might be useful based on their risk. A negative radiographic report should not delay biopsy if a dominant or clinically suspicious mass is present. Up to ten percent of cancers are not identified on mammography. A negative report may reinforce clinical impression. Adenosis and dense breasts may obscure an underlying neoplasm. False positive reports average 6 to 10%. Patient will receive a letter notifying them of these results.
== END 2022-11-23 01:57 ==
LOC: DI 01:37
PROVIDERS: PCP Nurse Practitioner Family; Visit Provider Nurse Practitioner Family
DX: R92.8 Other abnormal and inconclusive findings on diagnostic imaging of breast (principal)
CPT/HCPCS: 76642; 77063; 77067

== ENCOUNTER → 2023-06-02 01:41 | Outpatient (CLI) | payer OTHER, SELFPAY ==
--- NOTE | 2023-06-02 08:00 | DI.US_ITS ---
Exam(s) US BREAST LT COMPLETE MG MAMMO DIAGNOSTIC UNI EXAM: MG MAMMO DIAGNOSTIC UNI-LEFT COMPLETE LEFT BREAST ULTRASOUND CLINICAL HISTORY: 6 month follow up,r92.8,z09. TECHNIQUE: UNILATERAL LEFT BREAST CC AND MLO mammographic images PLUS ADDITIONAL SPOT COMPRESSION CC VIEWS were obtained with 3D tomosynthesis technique and utilizing computer aided detection (CAD). Also performed COMPLETE LEFT BREAST ULTRASOUND in all 4 quadrants and the retroareolar region, and th e left axilla. COMPARISON: Prior mammograms were reviewed, the most recent being November 2022. Prior ultrasound also r yamile.. FINDINGS: DIAGNOSTIC LEFT BREAST MAMMOGRAM: Fibroglandular tissue in left breast is again noted be moderately dense. The previously described no dule on the CC view was less visible on the conventional 3D cc view today. We then performed additio nal spot compression 3D view which was equivocal for the presence of a mammographically visible nodul e. There are no new spiculated masses nor malignant-appearing microcalcification groups in the left [address]. There is no new architectural distortion or skin thickening-traction. We then proceeded with ultrasound.. COMPLETE LEFT BREAST ULTRASOUND: There are microcysts noted at 1 o'clock position (7 mm) and 4 o'clock position (6 mm) as well as to alex montanez 3 mm microcysts at the 7 o'clock position. At the 10 o'clock position the previously described finding is again noted. On today's study it appe ars similar in size, measuring 10 x 5 mm and has appearance of a benign cyst, well-defined and with i ncreased through transmission. No internal echoes. IMPRESSION: Benign left breast findings as described above. Appropriate follow-up is to keep this patient on her yearly mammogram schedule, implying the next ramon ateral mammogram would be in November 2023. Given the density of her fibroglandular tissue plus the fact that ultrasound shows findings hidden subjacent to her dense tissue on mammography I would recommend at that time that she also undergo complete bilateral breast ultrasound The patient was informed of the findings and follow-up recommendations by myself prior to leaving the department today. BI-RADS Category 2 - Benign Findings Breast Density - Category C - Heterogeneously dense Breast density Category C or D implies that the patient has dense breast tissue. Dense breast tissue can make it harder to find cancer on a mammogram. Dense breast tissue is also associated with an incr eased risk of breast cancer. This information about the result of the mammogram report was provided to the patient to raise their awareness. Use this report when you speak with the patient about their risks for breast cancer, which includes their family history. At that time, you may recommend additional screening tests (Ultrasoun d or MRI) as these tests may add significant information. A negative radiographic report should not delay biopsy if a dominant or clinically suspicious mass is present. Up to ten percent of cancers are not identified on mammography. A negative report may reinforce clinical impression. Adenosis and dense breasts may obscure an underlying neoplasm. False positive reports average 6 to 10%. Patient will receive a letter notifying them of these results.
== END ==
PROVIDERS: PCP Nurse Practitioner Family; Visit Provider Nurse Practitioner Family
DX: R92.8 Other abnormal and inconclusive findings on diagnostic imaging of breast (principal); Z09 Encounter for follow-up examination after completed treatment for conditions other than malignant neoplasm
CPT/HCPCS: 76642; 77061; 77065; G0279

== ENCOUNTER 2023-09-01 04:06 | Outpatient (CLI) | payer OTHER, SELFPAY ==
[2023-09-01 09:57] LABS: HCT 39.2 % (36.0-46.0); HGB 12.6 g/dL (11.2-15.7); MCH 28.3 pg (27.0-33.0); MCHC 32.1 % (32.0-36.0); MCV 88 fL (80-95); MPV 8.8 fL (8.0-11.0); Platelet Count 378 10^3/uL (130-400); RBC 4.46 10^6/uL (3.93-5.22); RDW 13.9 % (11.7-14.6); RDW-SD 45.5 fL; WBC 7.17 10^3/uL (4.4-10.8)
[2023-09-01 10:25] LABS: Hemoglobin A1C 5.7 % (<5.7)
[2023-09-01 10:56] LABS: ALT 42 U/L (14-59); AST 28 U/L (15-37); Albumin 3.5 g/dL (3.4-5.0); Alkaline Phosphatase 126 U/L (46-116); Anion Gap 9.5 mmol/L (3-11); BUN 10 mg/dL (7-18); Bilirubin, Total 0.4 mg/dL (0.2-1.0); CO2 28.5 mmol/L (21.0-32.0); CREATININE 0.8 mg/dL (0.55-1.02); Calcium 9.5 mg/dL (8.5-10.1); Calculated LDL 195 mg/dL (<100); Chloride 104 mmol/L (98-107); Cholesterol 273 mg/dL (<200); Ferritin 51 ng/mL (8-252); Glucose 94 mg/dL (74-106); HDL Cholesterol 52 mg/dL (40-60); Potassium 4.2 mmol/L (3.5-5.1); Sodium 142 mmol/L (136-145); Total Protein 7.9 g/dL (6.4-8.2); Triglyceride 132 mg/dL (<150)
[2023-09-01 11:18] LABS: Iron 52 ug/dL (50-170); Total Iron Binding Capacity 322 ug/dL (250-450); Transferrin Sat 16 % (15-50)
== END 2023-09-01 04:07 | disposition home or self-care (01) ==
LOC: LBO 04:07
PROVIDERS: PCP Nurse Practitioner Family; Visit Provider Nurse Practitioner Family
DX: Z00.00 Encounter for general adult medical examination without abnormal findings (principal); F41.8 Other specified anxiety disorders; D50.9 Iron deficiency anemia, unspecified; R53.83 Other fatigue; R79.89 Other specified abnormal findings of blood chemistry
CPT/HCPCS: 36415; 80053; 80061; 85027; 82728; 83036; 83540; 83550

== ENCOUNTER → 2023-11-15 04:25 | Outpatient (CLI) | payer OTHER, SELFPAY ==
--- NOTE | 2023-11-15 08:00 | DI.MAMMO_ITS ---
Exam(s) MAMMO SCREENING EXAM: MAMMO SCREENING CLINICAL HISTORY: screening,Z12.39. TECHNIQUE: Bilateral full field digital CC and MLO mammographic images were obtained with 3D tomosyn thesis and utilizing computer aided detection (CAD). COMPARISON: Prior mammograms were reviewed. Prior ultrasound examinations were also reviewed FINDINGS: The fibroglandular tissue pattern is again noted be moderately dense, this somewhat decreasing the se nsitivity of the mammogram for finding hidden underlying lesions. No obvious new left breast findings. On the right CC view there is an asymmetric density-possible nodule measuring 6 x 5 mm located 3 cm i n from the nipple, slightly lateral of center. Spot compression view and ultrasound recommended. There are no malignant-appearing microcalcification groups in this region or elsewhere in either [address] There is no significant architectural distortion nor skin thickening-retraction. IMPRESSION: Moderately dense fibroglandular tissue. Suggestion of 6 x 5 mm right breast nodule. Spot compressio n CC view and ultrasound recommended. I recommend patient undergo bilateral breast ultrasound given this finding plus other findings in the opposite-left breast which have been shown to be hidden subja cent to her dense fibroglandular tissue on 3D mammography. In the left breast we would be most inter ested in reviewing the appearance of the finding previously described at the 10 o'clock position. Therefore, recommend diagnostic right breast mammogram and bilateral complete breast ultrasound BI-RADS Category 0 - Assessment Incomplete: Need additional imaging evaluation Breast Density - Category C - Heterogeneously dense Breast density Category C or D implies that the patient has dense breast tissue. Dense breast tissue can make it harder to find cancer on a mammogram. Dense breast tissue is also associated with an incr eased risk of breast cancer. This information about the result of the mammogram report was provided to the patient to raise their awareness. Use this report when you speak with the patient about their risks for breast cancer, which includes their family history. At that time, you may recommend additional screening tests (Ultrasoun d or MRI) as these tests may add significant information. A negative radiographic report should not delay biopsy if a dominant or clinically suspicious mass is present. Up to ten percent of cancers are not identified on mammography. A negative report may reinforce clinical impression. Adenosis and dense breasts may obscure an underlying neoplasm. False positive reports average 6 to 10%. Patient will receive a letter notifying them of these results.
== END ==
PROVIDERS: PCP Nurse Practitioner Family; Visit Provider Nurse Practitioner Family
DX: Z12.31 Encounter for screening mammogram for malignant neoplasm of breast (principal); R92.8 Other abnormal and inconclusive findings on diagnostic imaging of breast
CPT/HCPCS: 77063; 77067

== ENCOUNTER → 2023-11-17 04:10 | Outpatient (CLI) | payer OTHER, SELFPAY ==
--- NOTE | 2023-11-17 | DI.MAMMO_ITS ---
Exam(s) MG MAMMO SCREEN CALL BACK UNI US BREAST RT COMPLETE EXAM: MG MAMMO SCREEN CALL BACK UNI-RIGHT AND COMPLETE RIGHT BREAST ULTRASOUND CLINICAL HISTORY: F/U MAMMO, R92.8,RT ASYMMETRIC DENSITY,? NODULE. TECHNIQUE: Unilateral spot mammographic images obtained with 3D tomosynthesisand utilizing computer aided detection (CAD). . Complete RIGHT breast Ultrasound was also performed, including all 4 quadrants, the retroareolar román on, and the ipsilateral axilla. COMPARISON: Prior mammograms were reviewed. This additional imaging was performed due to findings described on the recent screening mammogram of 11/15/2023. FINDINGS: DIAGNOSTIC MAMMOGRAM: Additional mammographic views performed todayequivocal for the presence of a nodule. We proceeded with ultrasound. COMPLETE RIGHT BREAST ULTRASOUND: Ultrasound performed today reveals 2 microcysts. At the 12 o'clock position there is a [address] microcyst which may correspond to the finding on the mammogram. At the 7 o'clock position there is a 6 x 4 millimeter microcyst, also possibly corresponding to the f inding on the mammogram. Most importantly, there are no solid lesions in all 4 quadrants of the right breast.. Scanning of the ipsilateral axilla reveals no significant adenopathy. IMPRESSION: 1. Benign findings. Nodule on the mammogram corresponds to 1 of the 2 microcysts seen on ultrasound . No solid lesions seen in all 4 quadrants on ultrasound exam. Appropriate follow-up as discussed by myself with the patient today is to keep this patient on a year ly mammogram schedule. Given the density of her fibroglandular tissue I recommend bilateral breast u ltrasound at the time for next yearly mammogram, earlier if clinically indicated.. The patient was informed of these findings and recommendations by myself prior to leaving the departm ent today. BI-RADS Category 2 - Benign Findings Breast Density - Category C - Heterogeneously dense Breast density Category C or D implies that the patient has dense breast tissue. Dense breast tissue can make it harder to find cancer on a mammogram. Dense breast tissue is also associated with an incr eased risk of breast cancer. This information about the result of the mammogram report was provided to the patient to raise their awareness. Use this report when you speak with the patient about their risks for breast cancer, which includes their family history. At that time, you may recommend additional screening tests (Ultrasoun d or MRI) as these tests may add significant information. A negative radiographic report should not delay biopsy if a dominant or clinically suspicious mass is present. Up to ten percent of cancers are not identified on mammography. A negative report may reinforce clinical impression. Adenosis and dense breasts may obscure an underlying neoplasm. False positive reports average 6 to 10%. Patient will receive a letter notifying them of these results.
== END ==
PROVIDERS: PCP Nurse Practitioner Family; Visit Provider Nurse Practitioner Family
DX: Z12.31 Encounter for screening mammogram for malignant neoplasm of breast (principal); R92.8 Other abnormal and inconclusive findings on diagnostic imaging of breast
CPT/HCPCS: 76642; 77063; 77067

== ENCOUNTER 2024-11-02 01:07 | Outpatient (CLI) | payer OTHER, SELFPAY ==
[2024-11-02 11:11] LABS: Hemoglobin A1C 5.6 % (<5.7)
[2024-11-02 11:23] LABS: ALT 56 U/L (14-59); AST 34 U/L (15-37); Albumin 3.8 g/dL (3.4-5.0); Alkaline Phosphatase 136 U/L (46-116); Anion Gap 9.1 mmol/L (3-11); BUN 12 mg/dL (7-18); Bilirubin, Total 0.4 mg/dL (0.2-1.0); CO2 27.9 mmol/L (21.0-32.0); Calcium 9.3 mg/dL (8.5-10.1); Calculated LDL 238 mg/dL (<100); Chloride 101 mmol/L (98-107); Cholesterol 341 mg/dL (<200); Estimated GFR 66.95 (mL/min/1.73m2); Glucose 82 mg/dL (74-106); HDL Cholesterol 60 mg/dL (>or=50); Potassium 4.3 mmol/L (3.5-5.1); Sodium 138 mmol/L (136-145); Total Protein 7.9 g/dL (6.4-8.2); Triglyceride 216 mg/dL (<150)
== END 2024-11-02 01:08 | disposition home or self-care (01) ==
PROVIDERS: PCP Nurse Practitioner Family; Visit Provider Nurse Practitioner Family
DX: R73.09 Other abnormal glucose; E78.2 Mixed hyperlipidemia; R79.89 Other specified abnormal findings of blood chemistry; F41.9 Anxiety disorder, unspecified
CPT/HCPCS: 36415; 80053; 80061; 83036

== ENCOUNTER 2024-11-15 17:13 | Outpatient (REF) | payer OTHER, SELFPAY | END 2024-11-15 17:14 | disposition home or self-care (01) | LOC: LBN 17:13 | PROVIDERS: PCP Nurse Practitioner Family; Visit Provider Obstetrics & Gynecology | DX: Z11.51 Encounter for screening for human papillomavirus (HPV) (principal); Z01.419 Encounter for gynecological examination (general) (routine) without abnormal findings; R87.618 Other abnormal cytological findings on specimens from cervix uteri | CPT/HCPCS: 88142; 87624 ==

== ENCOUNTER 2024-12-19 01:14 | Outpatient (CLI) | payer OTHER, SELFPAY ==
--- NOTE | 2024-12-19 08:00 | DI.MAMMO_ITS ---
Exam(s) MAMMO SCREENING EXAM: MAMMO SCREENING CLINICAL HISTORY: screening,z12.39. TECHNIQUE: Bilateral full field digital CC and MLO mammographic images were obtained with 3D tomosyn thesis and utilizing computer aided detection (CAD). COMPARISON: Prior mammograms were reviewed. Prior ultrasound November 2023 also reviewed. FINDINGS: Fibroglandular tissue pattern of the breasts is again noted be moderately dense, this somewhat decrea sing the sensitivity of the mammogram for finding hidden underlying lesions. There are no CAD designations. Skin mole located inferiorly in the right breast. There are no new significant right breast findings. The previously described small nodule in the rig ht breast which were shown to be a cyst on ultrasound 1 year ago is actually less evident on today's mammogram. However, in the opposite-left breast there is a small round nodule measuring 4 mm located 5 cm in fro m the nipple on the CC view and 4 cm in from the nipple on the MLO view. There are no malignant-appearing microcalcification groups in this region or elsewhere in either [address] There is no significant architectural distortion nor skin thickening-retraction. IMPRESSION: 1. Dense bilateral fibroglandular tissue. No radiographic evidence of malignancy in the right breast . 2. There is a 4 millimeter well-defined oval nodule in the left breast now evident, as described xavi leyva. Spot compression MLO and CC views of the left breast are recommended as well as left breast ultra sound. BI-RADS Category 0 - Incomplete: Need additional imaging evaluation Breast Density - Category C - The breast are heterogeneously dense, which may obscure small masses. Breast density Category C or D implies that the patient has dense breast tissue. Dense breast tissue can make it harder to find cancer on a mammogram. Dense breast tissue is also associated with an incr eased risk of breast cancer. This information about the result of the mammogram report was provided to the patient to raise their awareness. Use this report when you speak with the patient about their risks for breast cancer, which includes their family history. At that time, you may recommend additional screening tests (Ultrasoun d or MRI) as these tests may add significant information. A negative radiographic report should not delay biopsy if a dominant or clinically suspicious mass is present. Up to ten percent of cancers are not identified on mammography. A negative report may reinforce clinical impression. Adenosis and dense breasts may obscure an underlying neoplasm. False positive reports average 6 to 10%. Patient will receive a letter notifying them of these results.
== END 2024-12-19 01:34 ==
LOC: DI 01:14
PROVIDERS: PCP Nurse Practitioner Family; Visit Provider Nurse Practitioner Family
DX: Z12.31 Encounter for screening mammogram for malignant neoplasm of breast (principal); R92.333 Mammographic heterogeneous density, bilateral breasts
CPT/HCPCS: 77063; 77067

== ENCOUNTER 2024-12-25 01:54 | Outpatient (CLI) | payer OTHER, SELFPAY ==
--- NOTE | 2024-12-25 | DI.US_ITS ---
Exam(s) MG MAMMO SCREEN CALL BACK UNI US BREAST LT COMPLETE EXAM: MG MAMMO SCREEN CALL BACK UNI-LEFT COMPLETE LEFT BREAST ULTRASOUND CLINICAL HISTORY: R92.8 ABN Mammo LT breast nodule 4mm located 5mm from nipple on CC view. TECHNIQUE: Unilateral BREAST spot mammographic images obtained with 3D tomosynthesisand utilizing co mputer aided detection (CAD). . Complete LEFT breast Ultrasound was also performed, including all 4 quadrants, the retroareolar regio n, and the ipsilateral axilla. COMPARISON: Prior mammograms were reviewed. This additional imaging was performed due to findings described on the recent screening mammogram of 12/19/2024. FINDINGS: DIAGNOSTIC MAMMOGRAM: Additional mammographic views performed todaydo not dissipate this finding. We proceeded with ultras ound COMPLETE LEFT BREAST ULTRASOUND: Ultrasound performed today reveals 3 findings. At the 12 o'clock position there is a finding measuring 8 x 5 mm mm which is probably a conglomeratio n of microcysts or benign intramammary lymph node. At the 8 o'clock position there is a 4 millimeter benign microcyst which probably corresponds to the finding on the mammogram. In the retroareolar region there is another 4 millimeter benign microcyst. Scanning of the ipsilateral axilla reveals no significant adenopathy. IMPRESSION: 1. Benign findings. The finding described on the recent mammogram corresponds to a 4 millimeter lexus ign microcyst at the 8 o'clock position of the left breast. 2. There are 2 other benign-appearing ultrasound findings as described above. Appropriate follow-up is to keep this patient on her yearly mammogram schedule. Recommend bilateral complete breast ultrasound at the time of her next yearly mammogram. The patient was informed of these findings and recommendations by myself prior to leaving the departm ent today. BI-RADS Category 2 - Benign Findings Breast Density - Category C - The breast are heterogeneously dense, which may obscure small masses. Breast density Category C or D implies that the patient has dense breast tissue. Dense breast tissue can make it harder to find cancer on a mammogram. Dense breast tissue is also associated with an incr eased risk of breast cancer. This information about the result of the mammogram report was provided to the patient to raise their awareness. Use this report when you speak with the patient about their risks for breast cancer, which includes their family history. At that time, you may recommend additional screening tests (Ultrasoun d or MRI) as these tests may add significant information. A negative radiographic report should not delay biopsy if a dominant or clinically suspicious mass is present. Up to ten percent of cancers are not identified on mammography. A negative report may reinforce clinical impression. Adenosis and dense breasts may obscure an underlying neoplasm. False positive reports average 6 to 10%. Patient will receive a letter notifying them of these results.
== END 2024-12-25 02:14 ==
LOC: DI 01:54
PROVIDERS: PCP Nurse Practitioner Family; Visit Provider Nurse Practitioner Family
DX: Z12.31 Encounter for screening mammogram for malignant neoplasm of breast (principal); N60.02 Solitary cyst of left breast
CPT/HCPCS: 76642; 77063; 77067

== ENCOUNTER 2025-06-18 13:15 | Outpatient (CLI) | payer OTHER, SELFPAY ==
[2025-06-18 13:24] LABS: HCT 39.4 % (36.0-46.0); HGB 12.9 g/dL (11.2-15.7); MCH 29.5 pg (27.0-33.0); MCHC 32.7 % (32.0-36.0); MCV 90 fL (80-95); MPV 9.1 fL (8.0-11.0); Platelet Count 332 10^3/uL (130-400); RBC 4.37 10^6/uL (3.93-5.22); RDW 13.4 % (11.7-14.6); RDW-SD 44.7 fL; WBC 8.63 10^3/uL (4.4-10.8)
[2025-06-18 13:47] LABS: Ferritin 30 ng/mL (7-271); TSH (W/Ref FT4) 1.97 uIU/mL (0.55-4.78)
[2025-06-18 14:11] LABS: Iron 38 ug/dL (50-170)
[2025-06-18 14:12] LABS: Total Iron Binding Capacity 381 ug/dL (250-425); Transferrin Sat 10 % (15-50)
== END 2025-06-18 13:16 | disposition home or self-care (01) ==
LOC: LBO 13:17
PROVIDERS: PCP Nurse Practitioner Family; Visit Provider Obstetrics & Gynecology
DX: N93.9 Abnormal uterine and vaginal bleeding, unspecified (principal)
CPT/HCPCS: 36415; 85027; 82728; 83540; 83550; 84443